=== PATIENT | female | born 1965 | race Caucasian/White ===

== ENCOUNTER 2020-09-07 14:21 | Outpatient (REF) | payer BC, SELFPAY | END 2020-09-07 14:22 | disposition home or self-care (01) | LOC: HO.LAB 14:21 | PROVIDERS: Visit Provider Internal Medicine | DX: Z20.828 Contact with and (suspected) exposure to other viral communicable diseases (principal) | CPT/HCPCS: C9803; U0003 ==

== ENCOUNTER 2020-09-30 06:20 | Outpatient (REF) | payer BC, SELFPAY ==
--- NOTE | 2020-09-30 08:28 | XR_ITS ---
EXAMINATION: XR HIP, RIGHT CLINICAL INFORMATION: Pain right hip. COMPARISON: None TECHNIQUE: Two views of the right hip. FINDINGS: There is maintained right hip joint space without bony erosive changes. No loose bodies seen. No acute fracture or dislocation. The soft tissues are normal. XR/XR hip RT min 2V IMPRESSION: Normal right hip.
[2020-09-30 11:19] LABS: MANUAL DIFF FLAG NO
[2020-09-30 11:24] LABS: Basophils Absolute Auto 0.1 X10*3/uL (0.0-0.2); Basophils Percent Auto 0.7 % (0-2); Eosinophils Absolute Auto 0.3 X10*3/uL (0.0-0.4); Eosinophils Percent Auto 3.9 % (0-4); Hematocrit 41.9 % (37-47); Hemoglobin 13.7 g/dl (12.0-16.0); Imm Gran Abs Auto 0.01 X10*3/uL (0.00-0.03); Imm Gran Pct Auto 0.1 % (0.0-0.4); Lymphocytes Absolute Auto 2.6 X10*3/uL (1.2-4.9); Lymphocytes Percent Auto 37.1 % (20-40); Mean Corpuscular HGB Conc 32.7 g/dl (31.0-35.0); Mean Corpuscular Hemoglobin 31.6 pg (27.0-33.0); Mean Corpuscular Volume 96.8 fL (80-98); Mean Platelet Volume 11.2 fL (9.4-12.3); Monocytes Absolute Auto 0.8 X10*3/uL (0.1-1.2); Monocytes Percent Auto 11.1 % (2-11); Neutrophils Absolute Auto 3.3 X10*3/uL (2.0-8.3); Neutrophils Percent Auto 47.1 % (45-73); Platelet Count 315 X10*3/uL (160-400); Red Blood Count 4.33 X10*6/uL (4.20-5.50); Red Cell Distribution Width 12.9 % (11.0-16.0); White Blood Count 6.9 X10*3/uL (4.8-10.8)
[2020-09-30 11:52] LABS: Alanine Aminotransferase 19 U/L (0-31); Albumin Level 3.9 g/dL (3.5-5.0); Alkaline Phosphatase 78 U/L (39-117); Anion Gap 15 (12-20); Aspartate Amino Transferase 18 U/L (5-31); Bilirubin Total 0.4 mg/dL (0.0-1.0); Blood Urea Nitrogen 25 mg/dL (9-16); Calcium 8.8 mg/dL (8.4-10.2); Carbon Dioxide 24 mmol/L (22-29); Chloride 106 mmol/L (96-108); Cholesterol 277 mg/dL; Estimated Glomerular Filt Rate > 60; Glucose Fasting 94 mg/dL (60-99); HDL Cholesterol 63 mg/dL; LDL Cholesterol Calculated 190 mg/dl; Potassium 4.6 mmol/l (3.3-5.1); Sodium 140 mmol/L (135-145); Total Protein 7.1 g/dL (6.5-8.0); Triglycerides 122 mg/dL
[2020-09-30 12:01] LABS: TSH reflex Free T4 2.71 mIU/mL (0.32-4.0); Vitamin D 25-OH Total 22.2 ng/mL (>30)
[2020-09-30 12:05] LABS: Vitamin B12 322 pg/mL (200-900)
== END 2020-09-30 06:21 | disposition home or self-care (01) ==
LOC: HO.HMGCLDS 06:20
PROVIDERS: PCP Nurse Practitioner Family; Visit Provider Nurse Practitioner Family
DX: E03.9 Hypothyroidism, unspecified (principal); E78.5 Hyperlipidemia, unspecified; D51.0 Vitamin B12 deficiency anemia due to intrinsic factor deficiency; E55.9 Vitamin D deficiency, unspecified; M25.551 Pain in right hip
CPT/HCPCS: 36415; 73502; 80053; 80061; 82306; 82607; 84443; 85025

== ENCOUNTER 2020-11-23 14:28 | Day surgery (SDC) | payer BC, SELFPAY ==
--- NOTE | 2020-11-22 08:36 | P.CONAN_ITS ---
Documented by User: Vika Ramos 11/22/20 08:38 HPI - Anesthesia Eval Consult details Narrative: 55yo F for Colonoscopy PMFSH Past Medical History Medical History Arthritis Dyslipidemia GERD (gastroesophageal reflux disease) Hemorrhoids Hiatal hernia HTN (hypertension) Hypothyroid Migraine with aura On beta edgar at home Pernicious anemia Renal calculi Right hip pain Xanthelasma Family History Family History Father Pancreatic cancer Mother Alzheimer's disease Stroke Brother No problems noted. Sister No problems noted. Son No problems noted. Daughter No problems noted. Surgical History Surgical History History of lithotripsy Hx of colonoscopy Hx of esophagogastroduodenoscopy Social History Social History Smoking Status: Never smoker Use of substances other than those prescribed or required for medical reasons: No Advance Directives: No Advance Directives Information Provided: No Advance Directives on File: No Meds Allergies Allergy/AdvReac Type Severity Reaction Status Date / Time pravastatin Allergy Unknown liver Verified 11/17/20 09:12 Home Medications Medication Instructions Recorded Confirmed Type coenzyme Q10 10 mg capsule 10 mg PO BID cap 09/21/20 11/17/20 History levothyroxine 88 mcg tablet 88 mcg PO DAILY 09/21/20 11/17/20 History Exam Exam Date and Time: November 22, 2020 0836 Height,Weight and Vital Signs: Height 5 ft 1 in Weight 72.121 kg Pertinent Lab Results Pertinent Lab Results: Laboratory Tests 09/30/20 09/30/20 06:57 06:57 WBC 6.9 Hgb 13.7 Hct 41.9 Plt Count 315 Sodium 140 Potassium 4.6 Chloride 106 Carbon Dioxide 24 BUN 25 H Creatinine 0.95 Assessment and Plan Assessment Anesthesia Assessment: Chart Reviewed Documented by User: Martha Laboy 11/23/20 09:57 [facility] Past Medical History Medical History Arthritis Dyslipidemia GERD (gastroesophageal reflux disease) Hemorrhoids Hiatal hernia HTN (hypertension) Hypothyroid Migraine with aura On beta edgar at home Pernicious anemia Renal calculi Right hip pain Xanthelasma Family History Family History Father Pancreatic cancer Mother Alzheimer's disease Stroke Brother No problems noted. Sister No problems noted. Son No problems noted. Daughter No problems noted. Surgical History Surgical History History of lithotripsy Hx of colonoscopy Hx of esophagogastroduodenoscopy Social History Social History Smoking Status: Never smoker Use of substances other than those prescribed or required for medical reasons: No Advance Directives: No Advance Directives Information Provided: No Advance Directives on File: No Meds Allergies Allergy/AdvReac Type Severity Reaction Status Date / Time pravastatin Allergy Unknown liver Verified 11/17/20 09:12 Home Medications Medication Instructions Recorded Confirmed Type coenzyme Q10 10 mg capsule 10 mg PO BID cap 09/21/20 11/17/20 History levothyroxine 88 mcg tablet 88 mcg PO DAILY 09/21/20 11/17/20 History Exam Airway Mallampati Class: II TM Dist: >3cm Neck ROM: Full Denture: Upper Heart: RRR Lungs: CTAcBL Assessment and Plan Assessment Anesthesia Assessment: Anesthesia Plan Discussed and Chart Reviewed Final Anesthetic Review NPO: Yes ASA Class: II Final Preanesthetic Review: Meds/Allgs Chart Reviewed and Consent Obtained/Reviewed Patient Risk: Intermediate Procedure Risk: Intermediate Anesthetic Plan Anesthetic Plan: MAC: Disposition: Standard PACU
[2020-11-23 09:36] VITALS: BP 119/84; PULSE 102; RESP 16; TEMP 36.9; O2SAT 98
[2020-11-23] MEDS: Lactated Ringers 1,000 ML 100 ML IVCONT (09:39)
[2020-11-23 10:38] VITALS: BP 121/81; PULSE 94; RESP 16; TEMP 36.4; O2SAT 99
--- NOTE | 2020-11-23 10:42 | PM.OP ---
Brief Operative Note Date of Service: 11/23/20 Pre-op diagnosis: Screening, Hx of colon adenomas Post-op diagnosis: other (Colon polyps) Procedure: Colonoscopy to cecum and TI with biopsy and removal of polyps Surgeon: Fawad Reyna Anesthesia: MAC Estimated blood loss (mL): 4.0 Pathology: other (A. Cecal polyps) Condition: stable Disposition: PACU
[2020-11-23 10:53] VITALS: BP 132/86; PULSE 85; RESP 16; TEMP 36.4; O2SAT 98
--- NOTE | 2020-11-23 11:02 | HO.POSTANES ---
Post Anesthesia Evaluation Post Anesthesia Evaluation Vital Signs: Vital Signs Temp Pulse Resp BP Pulse Ox 11/23/20 10:53 97.6 F 85 16 132/86 98 11/23/20 10:38 97.6 F 94 16 121/81 99 11/23/20 09:36 98.4 F 102 H 16 119/84 98 Anesthesia: Monitored Mental Status: Awake Pain Control: Satisfactory Nausea/Vomiting: None Hydration: Adequate Anesthesia-Related Issues: No Anes. Related Issues
--- NOTE | 2020-11-23 11:10 | OP_ITS ---
SURGEON: Fawad Reyna MD INDICATIONS: The patient presents for evaluation of colorectal cancer screening and personal history of tubular adenoma of the colon. Full consent has been obtained from her for this, including risks of bleeding and perforation. PREOPERATIVE DIAGNOSIS: POSTOPERATIVE DIAGNOSIS: PROCEDURE PERFORMED: Colonoscopy to cecum and terminal ileum with biopsy and removal of polyps. ESTIMATED BLOOD LOSS: COMPLICATIONS: ANESTHESIA: Monitored anesthesia care. ASSISTANTS: SPECIMENS: PREOPERATIVE DIAGNOSES: Colorectal cancer screening and personal history of tubular adenoma of the colon. POSTOPERATIVE DIAGNOSES: Colorectal cancer screening and personal history of tubular adenoma of the colon, small colon polyps, diverticulosis, and internal hemorrhoids. DESCRIPTION OF PROCEDURE: The patient was placed in the left lateral decubitus position. The digital rectal exam revealed no abnormalities. The Olympus video pediatric colonoscope was entered into the rectum and advanced easily to the cecum. Once in the cecum, I did identify cecal pouch with appendiceal orifice and a normal-appearing ileocecal valve. The terminal ileum was cannulated and appeared normal. The scope was withdrawn back in the colon. The entire cecum was well visualized. In the cecum, were 2 flat less than 5 mm polyps, which were each biopsied and completely removed with cold biopsy forceps. The scope was slowly withdrawn assessing all mucosal surfaces carefully. Preparation was excellent. I did not visualize any sign of polyps otherwise, angiodysplasias, nor colitis. There was a mild amount of sigmoid diverticulosis. In the rectum, scope was retroflexed visualizing small internal hemorrhoids, but no other pathology. The rectal mucosa appeared normal. The scope was straightened and withdrawn from the patient. She tolerated the procedure well and was returned to the recovery area in stable condition. IMPRESSION: 1. Colon polyps, status post biopsy and removal. 2. Diverticulosis. 3. Internal hemorrhoids. PLAN: The results of the biopsy will be checked. I would recommend a repeat colonoscopy in 5 years for further surveillance. She will otherwise see me on a p.r.n. basis. This has been discussed with her daughter. MD SOLANGE Lopez/GHISLAINE / [id number]
== END 2020-11-23 14:30 | disposition home or self-care (01) ==
LOC: HO.SSS 14:28
PROVIDERS: PCP Nurse Practitioner Family; Visit Provider Internal Medicine
PROC: 0DJD8ZZ Inspection of Lower Intestinal Tract, Via Natural or Artificial Opening Endoscopic (ICD-10-PCS; CPT 45378; principal; 2020-11-23 10:00)
DX: Z12.11 Encounter for screening for malignant neoplasm of colon (principal); Z86.010 Personal history of colon polyps; D12.0 Benign neoplasm of cecum; K57.30 Diverticulosis of large intestine without perforation or abscess without bleeding; K64.8 Other hemorrhoids; K21.9 Gastro-esophageal reflux disease without esophagitis; I10 Essential (primary) hypertension; Z79.899 Other long term (current) drug therapy
CPT/HCPCS: 45380; 88305

== ENCOUNTER 2021-07-05 06:09 | Outpatient (REF) | payer BC, SELFPAY ==
[2021-07-05 11:09] LABS: MANUAL DIFF FLAG NO
[2021-07-05 11:16] LABS: Basophils Absolute Auto 0.1 X10*3/uL (0.0-0.2); Basophils Percent Auto 0.9 % (0-2); Eosinophils Absolute Auto 0.3 X10*3/uL (0.0-0.4); Eosinophils Percent Auto 5.4 % (0-4); Hematocrit 39.1 % (37-47); Hemoglobin 13.1 g/dl (12.0-16.0); Imm Gran Abs Auto 0.01 X10*3/uL (0.00-0.03); Imm Gran Pct Auto 0.2 % (0.0-0.4); Lymphocytes Absolute Auto 2.3 X10*3/uL (1.2-4.9); Lymphocytes Percent Auto 39.4 % (20-40); Mean Corpuscular HGB Conc 33.5 g/dl (31.0-35.0); Mean Corpuscular Hemoglobin 31.5 pg (27.0-33.0); Mean Platelet Volume 11.5 fL (9.4-12.3); Monocytes Absolute Auto 0.7 X10*3/uL (0.1-1.2); Monocytes Percent Auto 12.8 % (2-11); Neutrophils Absolute Auto 2.4 X10*3/uL (2.0-8.3); Neutrophils Percent Auto 41.3 % (45-73); Platelet Count 312 X10*3/uL (160-400); Red Blood Count 4.16 X10*6/uL (4.20-5.50); Red Cell Distribution Width 13.4 % (11.0-16.0); White Blood Count 5.8 X10*3/uL (4.8-10.8)
[2021-07-05 11:47] LABS: Alanine Aminotransferase 16 U/L (0-31); Albumin Level 4.1 g/dL (3.5-5.0); Alkaline Phosphatase 105 U/L (39-117); Anion Gap 12 (12-20); Aspartate Amino Transferase 18 U/L (5-31); Bilirubin Total 0.5 mg/dL (0.0-1.0); Blood Urea Nitrogen 16 mg/dL (9-16); Calcium 9.4 mg/dL (8.4-10.2); Carbon Dioxide 24 mmol/L (22-29); Chloride 108 mmol/L (96-108); Cholesterol 258 mg/dL; Estimated Glomerular Filt Rate > 60; Glucose Fasting 95 mg/dL (60-99); HDL Cholesterol 54 mg/dL; LDL Cholesterol Calculated 180 mg/dl; Potassium 4.2 mmol/L (3.3-5.1); Sodium 140 mmol/L (135-145); Total Protein 7.1 g/dL (6.5-8.0); Triglycerides 124 mg/dL
[2021-07-05 12:10] LABS: TSH reflex Free T4 2.81 uIU/mL (0.32-4.0)
[2021-07-05 12:13] LABS: Folate 12.6 ng/mL (> or = 4.0); Vitamin B12 249 pg/mL (200-900)
== END 2021-07-05 06:10 | disposition home or self-care (01) ==
LOC: HO.HMGCLDS 06:09
PROVIDERS: PCP Nurse Practitioner Family; Visit Provider Nurse Practitioner Family
DX: E78.5 Hyperlipidemia, unspecified (principal); I10 Essential (primary) hypertension; D51.0 Vitamin B12 deficiency anemia due to intrinsic factor deficiency
CPT/HCPCS: 36415; 80053; 80061; 82607; 82746; 84443; 85025

== ENCOUNTER 2021-08-16 18:43 | Emergency (ER) | payer BC, SELFPAY ==
--- NOTE | 2021-08-16 | ECG_ITS ---
Test Reason : CHEST PAIN Blood Pressure : / mmHG Vent. Rate : 083 BPM Atrial Rate : 083 BPM P-R Int : 180 ms QRS Dur : 086 ms QT Int : 360 ms P-R-T Axes : 055 066 050 degrees QTc Int : 423 ms Normal sinus rhythm Normal ECG When compared with ECG of 12-JAN-2020 20:49, No significant change was found Referred By: Generic ED Physician Electronically Signed By:JENNIFER BOUDREAUX MD
--- NOTE | ~2021-08-16 | XR_ITS ---
EXAMINATION: XR CHEST CLINICAL INFORMATION: Chest pain COMPARISON: Previous chest x-ray most recent December 2019 TECHNIQUE: 2 views of the chest were obtained. FINDINGS: No significant abnormality is noted involving the heart, lungs, mediastinum, bony thorax or soft tissues. XR/XR chest 2V IMPRESSION: Unremarkable examination.
[2021-08-16 19:21] VITALS: BP 141/85; PULSE 83; RESP 16; TEMP 36.2; O2SAT 98; BMI 30.2
[2021-08-16 19:36] LABS: MANUAL DIFF FLAG NO
[2021-08-16 19:38] LABS: Basophils Absolute Auto 0.1 X10*3/uL (0.0-0.2); Basophils Percent Auto 0.5 % (0-2); Eosinophils Absolute Auto 0.1 X10*3/uL (0.0-0.4); Hematocrit 37.7 % (37-47); Hemoglobin 12.8 g/dl (12.0-16.0); Imm Gran Abs Auto 0.03 X10*3/uL (0.00-0.03); Imm Gran Pct Auto 0.3 % (0.0-0.4); Lymphocytes Absolute Auto 2.3 X10*3/uL (1.2-4.9); Lymphocytes Percent Auto 21.5 % (20-40); Mean Corpuscular Hemoglobin 31.3 pg (27.0-33.0); Mean Corpuscular Volume 92.2 fL (80-98); Mean Platelet Volume 10.6 fL (9.4-12.3); Monocytes Absolute Auto 0.9 X10*3/uL (0.1-1.2); Monocytes Percent Auto 8.6 % (2-11); Neutrophils Absolute Auto 7.4 X10*3/uL (2.0-8.3); Neutrophils Percent Auto 68.1 % (45-73); Platelet Count 280 X10*3/uL (160-400); Red Blood Count 4.09 X10*6/uL (4.20-5.50); Red Cell Distribution Width 12.8 % (11.0-16.0); White Blood Count 10.8 X10*3/uL (4.8-10.8)
[2021-08-16 19:49] LABS: Anion Gap 13 (12-20); Blood Urea Nitrogen 16 mg/dL (9-16); Calcium 9.2 mg/dL (8.4-10.2); Carbon Dioxide 23 mmol/L (22-29); Chloride 107 mmol/L (96-108); Creatinine Clr Calc Pharmacy 73.4; Estimated Glomerular Filt Rate > 60; Glucose Random 97 mg/dL (60-115); Potassium 3.8 mmol/L (3.3-5.1); Sodium 139 mmol/L (135-145)
[2021-08-16 19:56] LABS: Troponin-I High Sensitivity < 3.5 ng/L (<3.5-17.0)
--- NOTE | 2021-08-16 20:23 | ED_ITS ---
HPI - Chest Pain General Chief Complaint: Chest Pain Stated Complaint: chest pain Time Seen by Provider: 08/16/21 20:22 Related Data Home Medications Medication Instructions Recorded Confirmed coenzyme Q10 10 mg capsule 10 mg PO BID cap 09/21/20 11/17/20 Previous Rx's Medication Instructions Recorded sumatriptan succinate 50 mg tablet 50 mg PO BID PRN 30 Days #60 tab 12/26/20 metoprolol succinate 50 mg 50 mg PO DAILY 90 Days #90 tab 12/27/20 tablet,extended release 24 hr (Toprol XL) atorvastatin 80 mg tablet 80 mg PO QPM #90 tab 03/23/21 levothyroxine 88 mcg tablet 88 mcg PO DAILY #90 tab 05/21/21 Allergies Allergy/AdvReac Type Severity Reaction Status Date / Time pravastatin Allergy Unknown liver Verified 08/16/21 19:24 [facility] Past Medical History Medical History (Updated 08/16/21 @ 23:18 by Mary Vergara MD) Arthritis Dyslipidemia GERD (gastroesophageal reflux disease) Hemorrhoids Hiatal hernia HTN (hypertension) Hypothyroid Migraine with aura On beta edgar at home Pernicious anemia Renal calculi Right hip pain Xanthelasma Surgical History History of lithotripsy Hx of colonoscopy Hx of esophagogastroduodenoscopy Family History Family History Father Pancreatic cancer Mother Alzheimer's disease Stroke Brother No problems noted. Sister No problems noted. Son No problems noted. Daughter No problems noted. Social History Social History Advance Directives: No Advance Directives Information Provided: Yes Patient : No Physical Exam Vital Signs: Vital Signs: Last Vital Signs Temp 97.1 F 08/16/21 19:21 Pulse 83 08/16/21 19:21 Resp 16 08/16/21 19:21 BP 141/85 H 08/16/21 19:21 Pulse Ox 98 08/16/21 19:21 Body Mass Index 30.2 MDM - Chest Pain MDM Narrative Medical decision making narrative: Two sets of heart enzymes are negative. Idris cordoba has chest pain that is mid chest not associated with shortness of breath no diaphoresis. Positive history of high cholesterol no history diabetes, hypertension, mi, family history of ID. Never was a smoker. Patient is is well-appearing. EKG is normal. It showed a sinus pattern heart rate was 80 NE QRS QT within normal limits is no acute ST segment elevation. In the setting of atypical history in the setting of negative troponin 1 risk factor and age of 55. Patient heart score is less than 3. Will discharge patient home. Chest x- ray showed no pneumonia no pneumothorax. Patient has no significant risk for pulmonary emboli. Will discharge patient home. Medical Records Data Attestation: I reviewed the patient's medical records. Lab Data Attestation: I reviewed the patient's lab results. Result diagrams: 08/16/21 19:30 08/16/21 19:30 Labs: Lab Results 08/16/21 08/16/21 08/16/21 Range/Units 19:30 19:30 19:30 WBC 10.8 (4.8-10.8) X10*3/uL RBC 4.09 L (4.20-5.50) X10*6/uL Hgb 12.8 (12.0-16.0) g/dl Hct 37.7 (37-47) % MCV 92.2 (80-98) fL MCH 31.3 (27.0-33.0) pg MCHC 34.0 (31.0-35.0) g/dl RDW 12.8 (11.0-16.0) % Plt Count 280 (160-400) X10*3/uL MPV 10.6 (9.4-12.3) fL Immature Gran % (Auto) 0.3 (0.0-0.4) % Neut % (Auto) 68.1 (45-73) % Lymph % (Auto) 21.5 (20-40) % Hernando % (Auto) 8.6 (2-11) % Eos % (Auto) 1.0 (0-4) % Baso % (Auto) 0.5 (0-2) % Lymph # (Auto) 2.3 (1.2-4.9) X10*3/uL Hernando # (Auto) 0.9 (0.1-1.2) X10*3/uL Eos # (Auto) 0.1 (0.0-0.4) X10*3/uL Baso # (Auto) 0.1 (0.0-0.2) X10*3/uL Abs Immat Gran (auto) 0.03 (0.00-0.03) X10*3/uL Absolute Neuts (auto) 7.4 (2.0-8.3) X10*3/uL Absolute Nucleated RBC 0.000 (0.0-0.012) X10*3/uL Nucleated RBC % (auto) 0.0 (0.0-0.2) /100WBC Sodium 139 (135-145) mmol/L Potassium 3.8 (3.3-5.1) mmol/L Chloride 107 (96-108) mmol/L Carbon Dioxide 23 (22-29) mmol/L Anion Gap 13 (12-20) BUN 16 (9-16) mg/dL Creatinine 0.81 (0.5-1.4) mg/dL Estim Creat Clear Calc 73.4 Estimated GFR > 60 Random Glucose 97 (60-115) mg/dL Calcium 9.2 (8.4-10.2) mg/dL Troponin I High Sens < 3.5 (<3.5-17.0) ng/L 08/16/21 Range/Units 22:50 WBC (4.8-10.8) X10*3/uL RBC (4.20-5.50) X10*6/uL Hgb (12.0-16.0) g/dl Hct (37-47) % MCV (80-98) fL MCH (27.0-33.0) pg MCHC (31.0-35.0) g/dl RDW (11.0-16.0) % Plt Count (160-400) X10*3/uL MPV (9.4-12.3) fL Immature Gran % (Auto) (0.0-0.4) % Neut % (Auto) (45-73) % Lymph % (Auto) (20-40) % Hernando % (Auto) (2-11) % Eos % (Auto) (0-4) % Baso % (Auto) (0-2) % Lymph # (Auto) (1.2-4.9) X10*3/uL Hernando # (Auto) (0.1-1.2) X10*3/uL Eos # (Auto) (0.0-0.4) X10*3/uL Baso # (Auto) (0.0-0.2) X10*3/uL Abs Immat Gran (auto) (0.00-0.03) X10*3/uL Absolute Neuts (auto) (2.0-8.3) X10*3/uL Absolute Nucleated RBC (0.0-0.012) X10*3/uL Nucleated RBC % (auto) (0.0-0.2) /100WBC Sodium (135-145) mmol/L Potassium (3.3-5.1) mmol/L Chloride (96-108) mmol/L Carbon Dioxide (22-29) mmol/L Anion Gap (12-20) BUN (9-16) mg/dL Creatinine (0.5-1.4) mg/dL Estim Creat Clear Calc Estimated GFR Random Glucose (60-115) mg/dL Calcium (8.4-10.2) mg/dL Troponin I High Sens < 3.5 (<3.5-17.0) ng/L Discharge Plan Discharge Clinical Impression: Chest pain Patient Disposition: Home, Self-Care Instructions: Chest Pain (ED) Prescriptions: No Action sumatriptan succinate 50 mg tablet 50 mg PO BID PRN (Reason: migraine headache) 30 Days Qty: 60 RF: 4 metoprolol succinate [Toprol XL] 50 mg tablet extended release 24 hr 50 mg PO DAILY 90 Days Qty: 90 RF: 2 atorvastatin 80 mg tablet 80 mg PO QPM Qty: 90 RF: 0 levothyroxine 88 mcg tablet 88 mcg PO DAILY Qty: 90 RF: 0 coenzyme Q10 10 mg capsule 10 mg PO BID RF: 0 Referrals: Dave Iyer, PATROL INSPECTOR-BC [Primary Care Provider] - 2 days (Small risk of cardiac event still exists. Please closely follow-up with your doctor and with cardiology.) Bentley Aguila MD [Physician] - 2 days
[2021-08-16 23:13] LABS: Troponin-I High Sensitivity < 3.5 ng/L (<3.5-17.0)
== END 2021-08-16 23:28 | disposition home or self-care (01) ==
PROVIDERS: Emergency Provider Emergency Medicine Emergency Medical Services; PCP Nurse Practitioner Family
DX: R07.9 Chest pain, unspecified (principal); I10 Essential (primary) hypertension; Z79.899 Other long term (current) drug therapy
CPT/HCPCS: 36415; 71046; 80048; 84484; 85025; 93005; 99283

== ENCOUNTER 2021-10-27 09:15 | Outpatient (REF) | payer BC, SELFPAY ==
[2021-10-27 12:48] LABS: Cholesterol 233 mg/dL; HDL Cholesterol 56 mg/dL; LDL Cholesterol Calculated 147 mg/dl; Triglycerides 151 mg/dL
== END 2021-10-27 09:16 | disposition home or self-care (01) ==
LOC: HO.HMGCLDS 09:15
PROVIDERS: PCP Nurse Practitioner Family; Visit Provider Nurse Practitioner Family
DX: E78.5 Hyperlipidemia, unspecified (principal); I10 Essential (primary) hypertension
CPT/HCPCS: 36415; 80061

== ENCOUNTER 2022-01-22 06:00 | Outpatient (REF) | payer BC, SELFPAY ==
[2022-01-22 11:32] LABS: Appearance Urine CLOUDY; Color Urine STRAW; Glucose Urine UA NEG (NEG); Leukocyte Esterase Urine NEG (NEG); Nitrite Urine NEG (NEG); PH 5.5 (5.0-8.0); Specific Gravity - Urine 1.025 (1.005-1.025); Urine Blood NEG (NEG); Urine Ketones NEG (NEG); Urine Protein NEG (NEG-TRACE)
[2022-01-22 12:20] LABS: Alanine Aminotransferase 15 U/L (0-31); Alkaline Phosphatase 94 U/L (39-117); Anion Gap 10 (12-20); Aspartate Amino Transferase 15 U/L (5-31); Bilirubin Total 0.4 mg/dL (0.0-1.0); Blood Urea Nitrogen 19 mg/dL (9-16); Calcium 8.9 mg/dL (8.4-10.2); Carbon Dioxide 23 mmol/L (22-29); Chloride 109 mmol/L (96-108); Cholesterol 182 mg/dL; Estimated Glomerular Filt Rate > 60; Glucose Fasting 103 mg/dL (60-99); HDL Cholesterol 50 mg/dL; LDL Cholesterol Calculated 105 mg/dl; Potassium 4.1 mmol/L (3.3-5.1); Sodium 138 mmol/L (135-145); TSH reflex Free T4 5.18 uIU/mL (0.32-4.0); Total Protein 6.9 g/dL (6.5-8.0); Triglycerides 139 mg/dL
[2022-01-22 13:00] LABS: Free T4 (Free Thyroxine) 0.79 ng/dL (0.71-1.85)
== END 2022-01-22 06:01 | disposition home or self-care (01) ==
LOC: HO.HMGCLDS 06:00
PROVIDERS: Visit Provider Nurse Practitioner Family
DX: I10 Essential (primary) hypertension (principal); E03.9 Hypothyroidism, unspecified; E78.5 Hyperlipidemia, unspecified
CPT/HCPCS: 36415; 80053; 80061; 81003; 84439; 84443

== ENCOUNTER 2022-03-12 06:00 | Outpatient (REF) | payer BC, SELFPAY ==
[2022-03-12 12:10] LABS: TSH reflex Free T4 13.83 uIU/mL (0.32-4.0)
== END 2022-03-12 06:01 | disposition home or self-care (01) ==
LOC: HO.HMGCLDS 06:00
PROVIDERS: Visit Provider Nurse Practitioner Family
DX: E03.9 Hypothyroidism, unspecified (principal)
CPT/HCPCS: 36415; 84439; 84443

== ENCOUNTER 2022-05-14 16:02 | Outpatient (REF) | payer BC, SELFPAY ==
[2022-05-15 09:13] LABS: CT PCR NOT DETECTED (Not Detect.); NG PCR NOT DETECTED (Not Detect.)
[2022-05-15 09:44] LABS: BV Int Neg Control Negative (Negative); BV Int Pos Control Positive (Positive)
[2022-05-17 12:26] LABS: HPV mRNA E6/E7 rflx Not Detected (Not Detected)
== END 2022-05-14 16:03 | disposition home or self-care (01) ==
LOC: HO.LAB 16:02
PROVIDERS: Visit Provider Advanced Practice Midwife
DX: Z01.419 Encounter for gynecological examination (general) (routine) without abnormal findings (principal); Z11.51 Encounter for screening for human papillomavirus (HPV); Z20.2 Contact with and (suspected) exposure to infections with a predominantly sexual mode of transmission; N89.8 Other specified noninflammatory disorders of vagina
CPT/HCPCS: 87480; 87491; 87510; 87591; 87624; 87660; 88142

== ENCOUNTER 2022-07-13 16:16 | Outpatient (REF) | payer BC, SELFPAY ==
--- NOTE | ~2022-07-13 | MM_ITS ---
EXAMINATION: MM SCREENING DIGITAL BREAST TOMOSYNTHESIS, BILATERAL CLINICAL INFORMATION: Screening. Asymptomatic. The lifetime risk of breast cancer based on the Tyrer-Cuzick Model is 9%. COMPARISON: Outside mammography: 06/17/2018, 06/12/2017, 06/06/2016 ([place]). TECHNIQUE: Digital breast tomosynthesis is performed in both the craniocaudal and mediolateral oblique views along with computer-aided detection (CAD). Synthesized 2D images are generated from the tomosynthesis. FINDINGS: There are scattered areas of fibroglandular density (ACR BI-RADS breast composition Category b). There are no significant masses, abnormal calcifications, or other abnormalities. Parenchymal pattern is similar to prior outside studies. There is no developing density or architectural abnormality. The axilla and skin contours are unremarkable. No significant changes. MM/MM tomosynthesis screening BI IMPRESSION: No mammographic evidence of malignancy. ASSESSMENT: BI-RADS 1: Negative RECOMMENDATION: Routine annual mammography screening. This patient's information was entered into a reminder system with a target due date for their next mammogram.
== END 2022-07-13 16:17 | disposition home or self-care (01) ==
LOC: HO.MAMMO 16:16
PROVIDERS: Visit Provider Advanced Practice Midwife
DX: Z12.31 Encounter for screening mammogram for malignant neoplasm of breast (principal)
CPT/HCPCS: 77063; 77067

== ENCOUNTER 2023-05-13 15:37 | Outpatient (REF) | payer BC, SELFPAY | END 2023-05-13 15:38 | disposition home or self-care (01) | LOC: HO.XRAY 15:37 | PROVIDERS: Visit Provider Neuromusculoskeletal Medicine, Sports Medicine | DX: Z13.89 Encounter for screening for other disorder (principal) ==

== ENCOUNTER 2023-05-14 15:54 | Outpatient (REF) | payer BC, SELFPAY ==
--- NOTE | ~2023-05-14 | XR_ITS ---
EXAMINATION: XR CERVICAL SPINE CLINICAL INFORMATION: Sprain COMPARISON: None available. TECHNIQUE: 5 views of the cervical spine, 7 images total. FINDINGS: There is no fracture or subluxation. Prevertebral soft tissues are within normal limits. There is marked disc space narrowing at C3-C4, C4-C5, C5-C6, C6/C7 and C7-T1 with marginal osteophyte formation. There is multilevel mild narrowing of the neural foramina. The lung apices are clear. XR/XR cervical spine 5V IMPRESSION: Marked multilevel degenerative disc disease.
--- NOTE | ~2023-05-14 | XR_ITS ---
EXAMINATION: XR LUMBOSACRAL SPINE CLINICAL INFORMATION: Sprain COMPARISON: 12/01/2016 TECHNIQUE: Three views of the lumbosacral spine. FINDINGS: Mild dextroscoliosis of the lumbar spine. Small pelvic calcifications are likely vascular. Atherosclerotic aortoiliac calcifications Facet arthritis in the lower lumbar spine. Moderate multilevel lumbar spondylosis with loss of disc space height at L3-L4. XR/XR lumbar spine 2-3V IMPRESSION: Progression of moderate multilevel lumbar spondylosis with loss of disc space height at L3-L4. Additional imaging with CT scan or MRI should be considered for better visualization as these modalities are much more sensitive for detection of fracture or other underlying pathology.
== END 2023-05-14 15:55 | disposition home or self-care (01) ==
LOC: HO.XRAY 15:54
PROVIDERS: Visit Provider Neuromusculoskeletal Medicine, Sports Medicine
DX: S16.1XXD Strain of muscle, fascia and tendon at neck level, subsequent encounter (principal); S39.012D Strain of muscle, fascia and tendon of lower back, subsequent encounter
CPT/HCPCS: 72050; 72100

== ENCOUNTER 2023-06-18 06:02 | Outpatient (REF) | payer BC, SELFPAY ==
[2023-06-18 11:20] LABS: MANUAL DIFF FLAG NO
[2023-06-18 11:27] LABS: Basophils Absolute Auto 0.1 X10*3/uL (0.0-0.2); Basophils Percent Auto 0.7 % (0-2); Eosinophils Absolute Auto 0.2 X10*3/uL (0.0-0.4); Eosinophils Percent Auto 1.9 % (0-4); Hemoglobin 13.6 g/dl (12.0-16.0); Imm Gran Abs Auto 0.03 X10*3/uL (0.00-0.03); Imm Gran Pct Auto 0.3 % (0.0-0.4); Lymphocytes Absolute Auto 4.6 X10*3/uL (1.2-4.9); Mean Corpuscular HGB Conc 33.2 g/dl (31.0-35.0); Mean Corpuscular Hemoglobin 31.5 pg (27.0-33.0); Mean Corpuscular Volume 94.9 fL (80.0-98.0); Monocytes Absolute Auto 0.8 X10*3/uL (0.1-1.2); Neutrophils Absolute Auto 4.7 x10*3/uL (2.0-8.3); Neutrophils Percent Auto 45.1 % (45-73); Platelet Count 322 X10*3/uL (160-400); Red Blood Count 4.32 X10*6/uL (4.20-5.50); Red Cell Distribution Width 13.4 % (11.0-16.0); White Blood Count 10.4 X10*3/uL (4.8-10.8)
[2023-06-18 11:36] LABS: Appearance Urine Clear; Color Urine Yellow; Glucose Urine UA Negative (Negative); Leukocyte Esterase Urine Negative (Negative); Nitrite Urine Negative (Negative); Specific Gravity - Urine 1.025 (1.005-1.025); Urine Blood Negative (Negative); Urine Ketones Negative (Negative); Urine Protein Negative (Neg-Trace)
[2023-06-18 12:02] LABS: Alanine Aminotransferase 16 U/L (0-31); Albumin Level 4.1 g/dL (3.5-5.0); Alkaline Phosphatase 83 U/L (39-117); Anion Gap 13 (12-20); Aspartate Amino Transferase 19 U/L (5-31); Bilirubin Total 0.2 mg/dL (0.0-1.0); Blood Urea Nitrogen 18 mg/dL (9-16); Calcium 9.6 mg/dL (8.4-10.2); Carbon Dioxide 25 mmol/L (22-29); Chloride 107 mmol/L (96-108); Cholesterol 305 mg/dL (<200); Estimated Glomerular Filt Rate > 60; Glucose Fasting 91 mg/dL (60-99); HDL Cholesterol 67 mg/dL (>40); LDL Cholesterol Calculated 208 mg/dL (<100); Potassium 3.8 mmol/L (3.3-5.1); Sodium 141 mmol/L (135-145); Total Protein 7.4 g/dL (6.5-8.0); Triglycerides 154 mg/dL (<150)
[2023-06-18 12:05] LABS: TSH reflex Free T4 31.44 uIU/mL (0.32-4.0); Vitamin D 25-OH Total 67.6 ng/mL (>30)
[2023-06-18 12:49] LABS: Free T4 (Free Thyroxine) 0.63 ng/dL (0.71-1.85)
== END 2023-06-18 06:03 | disposition home or self-care (01) ==
LOC: HO.HMGCLDS 06:02
PROVIDERS: PCP Nurse Practitioner Family; Visit Provider Nurse Practitioner Family
DX: E03.9 Hypothyroidism, unspecified (principal); I10 Essential (primary) hypertension; E55.9 Vitamin D deficiency, unspecified; E78.5 Hyperlipidemia, unspecified
CPT/HCPCS: 36415; 80053; 80061; 81003; 82306; 84439; 84443; 85025

== ENCOUNTER 2023-07-19 15:39 | Outpatient (REF) | payer BC, SELFPAY ==
--- NOTE | ~2023-07-19 | MM_ITS ---
EXAMINATION: MM SCREENING DIGITAL BREAST TOMOSYNTHESIS, BILATERAL CLINICAL INFORMATION: Screening. Asymptomatic. COMPARISON: Mammography: This study is compared with prior exams dating back to 2016. TECHNIQUE: Digital breast tomosynthesis is performed in both the craniocaudal and mediolateral oblique views along with computer-aided detection (CAD). Synthesized 2D images are generated from the tomosynthesis. FINDINGS: There are scattered areas of fibroglandular density (ACR BI-RADS breast composition Category b). There are no significant masses, abnormal calcifications, or other abnormalities. MM/MM tomosynthesis screening BI IMPRESSION: No mammographic evidence of malignancy. ASSESSMENT: BI-RADS BI-RADS 1 - Negative RECOMMENDATION: Routine annual mammography screening. 1 year F/U This examination should not preclude the clinical evaluation of a suspicious palpable abnormality. This patient's information was entered into a reminder system with a target due date for their next mammogram.
== END 2023-07-19 15:40 | disposition home or self-care (01) ==
LOC: HO.MAMMO 15:39
PROVIDERS: PCP Nurse Practitioner Family; Visit Provider Nurse Practitioner Family
DX: Z12.31 Encounter for screening mammogram for malignant neoplasm of breast (principal)
CPT/HCPCS: 77063; 77067

== ENCOUNTER → 2023-07-19 16:00 | Outpatient (BNV) | payer BC, SELFPAY | PROVIDERS: PCP Nurse Practitioner Family; Visit Provider Radiology Diagnostic Radiology | DX: Z12.31 Encounter for screening mammogram for malignant neoplasm of breast (principal) | CPT/HCPCS: 77063; 77067 ==

== ENCOUNTER 2023-08-06 06:01 | Outpatient (REF) | payer BC, SELFPAY ==
[2023-08-06 13:02] LABS: Alanine Aminotransferase 25 U/L (0-31); Alkaline Phosphatase 68 U/L (39-117); Anion Gap 15 (12-20); Aspartate Amino Transferase 31 U/L (5-31); Bilirubin Total 0.2 mg/dL (0.0-1.0); Blood Urea Nitrogen 14 mg/dL (9-16); Calcium 9.6 mg/dL (8.4-10.2); Carbon Dioxide 22 mmol/L (22-29); Chloride 109 mmol/L (96-108); Cholesterol 225 mg/dL (<200); Estimated Glomerular Filt Rate > 60; Glucose Fasting 96 mg/dL (60-99); HDL Cholesterol 62 mg/dL (>40); LDL Cholesterol Calculated 140 mg/dL (<100); Potassium 3.9 mmol/L (3.3-5.1); Sodium 142 mmol/L (135-145); TSH reflex Free T4 12.43 uIU/mL (0.32-4.0); Triglycerides 117 mg/dL (<150)
[2023-08-06 13:50] LABS: Free T4 (Free Thyroxine) 0.87 ng/dL (0.71-1.85)
== END 2023-08-06 06:02 | disposition home or self-care (01) ==
LOC: HO.HMGCLDS 06:01
PROVIDERS: PCP Nurse Practitioner Family; Visit Provider Nurse Practitioner Family
DX: I10 Essential (primary) hypertension (principal); E78.5 Hyperlipidemia, unspecified; E03.9 Hypothyroidism, unspecified
CPT/HCPCS: 36415; 80053; 80061; 84439; 84443

== ENCOUNTER 2023-08-07 13:24 | Outpatient (AMB) | payer BC, SELFPAY ==
[2023-08-07 13:35] VITALS: BP 140/88; PULSE 81; O2SAT 97; BMI 28.6
--- NOTE | 2023-08-07 13:35 | A.OFFPC_ITS ---
Vital Signs 08/07/23 13:35 Height 5 ft 2 in Weight 156 lb 4 oz BMI 28.6 BP 140/88 H Blood Pressure Location Rt brachial Position Sitting Pulse 81 Pulse Source Pulse Oximeter Pulse Oximetry (%) 97 Oxygen Delivery Method Room Air Intake Visit Reasons: phy Allergies pravastatin Allergy (Unknown, Verified 08/07/23 15:53) liver Medication List - Last Reconciled 08/07/23 by TAVARES Watts levothyroxine 100 mcg PO DAILY 90 days metoprolol succinate ER (Toprol XL) 50 mg PO DAILY 90 days rosuvastatin 40 mg PO DAILY 90 days sumatriptan succinate 50 mg PO BID PRN 30 days Tobacco use date assessed: 08/07/23 Dental Screening Dental Screen Date: 08/07/23 Did you have a dental visit in the last 12 months?: Yes Did you have a dental problem in the last 6 months where you did not have access to dental care?: No Was dental information given to patient?: Patient has dentist HPI phy HPI Details Pt is here for a PE. Labs were already performed.Colon screen is up to date. 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 Mammo is up to date. Pt c/o cervical neck pain with radicular symptoms down her BUE. She reports that the pain is worse with movement. Pt had an XR which showed marked disc space narrowing at C3-C4, C4-C5, C5-C6, C6/C7 and C7-T1 with marginal osteophyte formation, multilevel mild narrowing of the neural foramina, marked multilevel DDD. She has done PT in the past. She has had injections as well. Pt's last MRI was over 8 years ago. Will order MRI. Pt's TSH was elevated. She is taking levothyroxine 88mcg regularly. Will increase this to 100mcg. dyslipidemia: choles/LDL is tredning down. [facility] Medical History On beta edgar at home Right hip pain GERD (gastroesophageal reflux disease) Pernicious anemia HTN (hypertension) Migraine with aura Dyslipidemia Hypothyroid Arthritis Xanthelasma Hemorrhoids Hiatal hernia Renal calculi Surgical History Hx of colonoscopy Hx of esophagogastroduodenoscopy History of lithotripsy Family History Father Pancreatic cancer Mother Alzheimer's disease Stroke Brother No problems noted. Sister No problems noted. Son No problems noted. Daughter No problems noted. Social History Housing: House Patient Tobacco Use Status: Never used Tobacco e-Cigarette/Vaping Use: Never Used Second Hand Smoke Exposure: No Current occupational status: employed Current occupation: [employer] Current occupational exposures/hazards: No Cognitive needs: No Hearing needs: No Vision needs: No Review of Systems Const Denies chills and Denies fever(s) Eyes Denies blurry vision ENT Denies vertigo, Denies dizziness and Denies sore throat Card Denies chest pain at rest, Denies chest pain with activity, Denies diaphoresis, Denies dyspnea and Denies dyspnea on exertion Resp Denies cough, Denies dyspnea, Denies dyspnea on exertion and Denies wheezing GI Denies abdominal pain, Denies melena, Denies hematochezia, Denies constipation, Denies diarrhea and Denies loose stools Denies hematuria Musc Denies numbness and Denies tingling Skin/Breast Denies lesions Neuro Denies vertigo, Denies dizziness, Denies numbness and Denies tingling Psych Denies anxiety, Denies depression, Denies homicidal ideation, Denies suicidal ideation and Denies other (substance abuse) Aller/Immun Denies wheezing Physical exam (Primary Care) Vital Signs: Last Vital Signs Pulse 81 08/07/23 13:35 BP 140/88 H 08/07/23 13:35 Pulse Ox 97 08/07/23 13:35 Oxygen Delivery Method Room Air 08/07/23 13:35 BMI result Body Mass Index 28.6 Tobacco/Smoking Status: Tobacco use Status Tobacco use date assessed 08/07/23 08/07/23 13:40 Patient Tobacco Use Status Never used Tobacco 08/07/23 13:40 e-Cigarette/Vaping Use Never Used 08/07/23 13:40 Const General: cooperative Nutritional Appearance: well nourished Orientation/consciousness: patient oriented x3 HENMT Head: Yes normal to inspection, Yes normocephalic and Yes atraumatic Ears: TM's normal bilaterally Eyes General: appearance normal, both eyes and all related structures Alignment and Position: alignment normal and position normal Neck Neck: Yes normal visual inspection and Yes no lymphadenopathy Thyroid: Thyroid normal Resp Effort & Inspection: normal respiratory effort Auscultation: clear to auscultation bilaterally Cardio Rate: regular rate Rhythm: regular rhythm Heart sounds: S1 normal heart sound present, S2 normal heart sound present and no murmurs GI Palpation (GI): Soft to palpation and nontender Auscultation: normal bowel sounds Back/Spine/Pelvis Other: + spurlings, cervical neck pain with radicular symptoms to BUE with chin tucks, chin raises, and neck flexion Skin Rashes: no rashes Neuro General: patient oriented x3, moves all extremities, no focal motor deficits and deep tendon reflexes 2+ bilaterally Romberg Test: Negative Psych Appearance: grossly normal Mental Status: mental status grossly normal Speech and movement: Normal speech and movement present Affect: normal affect Attitude: cooperative Thought process: Normal thought process present Thought content: Normal thought content present Insight: Good insight present (Psych) Judgement: Good judgement present (Psych) Assessment and Plan Assessment & Plan (1) Cervical neck pain with evidence of disc disease: Code(s): M50.90 - Cervical disc disorder, unspecified, unspecified cervical region Plan: MRI ordered (2) Degenerative disc disease, cervical: Code(s): M50.30 - Other cervical disc degeneration, unspecified cervical region Plan: MRI ordered (3) Abnormal x-ray of cervical spine: Code(s): R93.7 - Abnormal findings on diagnostic imaging of other parts of m usculoskeletal system Plan: MRI ordered (4) Hypothyroid: Code(s): E03.9 - Hypothyroidism, unspecified (5) Dyslipidemia: Code(s): E78.5 - Hyperlipidemia, unspecified Plan The patient agreed to the use of a healthcare or medical for this encounter. Scribed for TAVARES Ji by Candis Vazquez healthcare or medical, on 08/07/2023 at 13:45 EST Orders: Orders MR cervical spine wo con Today M50.30 - Other cervical disc degeneration, unspecified cervical region, M50.90 - Cervical disc disorder, unspecified, unsp ecified cervical region, R93.7 - Abnormal findings on diagnostic imaging of other parts of musculoskeletal system Medications: New gabapentin 200 mg (2 x 100 mg) PO BEDTIME 180 caps 0RF 90 days Changed From levothyroxine 88 mcg PO DAILY 90 tabs 0RF To levothyroxine 100 mcg PO DAILY 90 tabs 0RF 90 days Refilled sumatriptan succinate do not exceed 4 doses per 24 hrs 50 mg PO BID PRN 60 tabs 4RF migraine headache 30 days Coding Level of Care Code Est Pt Prev Care 40-64y(55904) Diagnoses Cervical neck pain with evidence of disc disease M50.90 Degenerative disc disease, cervical M50.30 Abnormal x-ray of cervical spine R93.7 Hypothyroid E03.9 Dyslipidemia E78.5
== END 2023-08-07 14:14 | disposition home or self-care (01) ==
PROVIDERS: PCP Nurse Practitioner Family; Visit Provider Nurse Practitioner Family
DX: Z00.00 Encounter for general adult medical examination without abnormal findings (principal); M50.90 Cervical disc disorder, unspecified, unspecified cervical region; M50.30 Other cervical disc degeneration, unspecified cervical region; R93.7 Abnormal findings on diagnostic imaging of other parts of musculoskeletal system; E03.9 Hypothyroidism, unspecified
CPT/HCPCS: 99396

== ENCOUNTER 2023-10-15 14:37 | Outpatient (AMB) | payer BC, SELFPAY ==
--- NOTE | 2023-10-15 14:40 | A.OFFVIS_ITS ---
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 She is doing well with concerns: Vaginal irritation and dryness. Attempting to eat a healthy diet with calcium and vitamin D and stays active with exercise. Currently sexually active. STI testing offered; she accepts. Last pap smear; 2021. Last mammogram; 2022. Colonoscopy is UTD. Denies any family history of breast, ovarian or colon cancer. [facility] Medical History On beta edgar at home Right hip pain GERD (gastroesophageal reflux disease) Pernicious anemia HTN (hypertension) Migraine with aura Dyslipidemia Hypothyroid Arthritis Xanthelasma Hemorrhoids Hiatal hernia Renal calculi Surgical History Hx of colonoscopy Hx of esophagogastroduodenoscopy History of lithotripsy Family History Father Pancreatic cancer Mother Alzheimer's disease Stroke Brother No problems noted. Sister No problems noted. Son No problems noted. Daughter No problems noted. Social History Housing: House Patient Tobacco Use Status: Never used Tobacco e-Cigarette/Vaping Use: Never Used Second Hand Smoke Exposure: No Current occupational status: employed Current occupation: [employer] Current occupational exposures/hazards: No Cognitive needs: No Hearing needs: No Vision needs: No Female Reproductive History Menstrual Menopause type: natural Total pregnancies: 2 Full term: 2 Number of Living Children: 2 Date of last pap smear: 05/14/22 (neg pap and hpv) Date of Mammogram: 07/19/23 (Birad 1) Review of Systems Const All systems reviewed & are unremarkable except as noted in HPI and below Reports as per HPI Eyes Reports no additional complaints ENT Reports no additional complaints Card Reports no additional complaints Resp Reports no additional complaints GI Reports as per HPI and Reports no additional complaints Reports as per HPI Musc Reports no additional complaints Skin/Breast Reports as per HPI Neuro Reports no additional complaints Psych Reports no additional complaints Endo Reports no additional complaints Dimitri/Lymph Reports no additional complaints Aller/Immun Reports no additional complaints Physical Exam Vital Signs: Last Vital Signs BP 150/90 H 10/15/23 14:48 BMI result Body Mass Index 28.0 Const General: cooperative, healthy appearing, no acute distress, well developed and alert Orientation/consciousness: patient oriented x3 HEENT Head: Yes normal to inspection Eyes General: appearance normal, both eyes and all related structures Neck Neck: Yes normal visual inspection Thyroid: Thyroid normal Chest Chest palpation & inspection: normal inspection of the chest and other (no puckering, dimpling, peau de orange, retraction, discharge, masses) Breast/axilla inspection: normal inspection of the breasts Breast/axilla palpation: normal palpation of the breasts Resp Effort & Inspection: normal respiratory effort GI Inspection: Yes normal to inspection Palpation (GI): Soft to palpation Rectal Exam - Female: deferred General: Yes bladder normal to palpation External Female Exam: normal external appearance and normal appearance of the urethra Speculum Exam - Vagina: normal appearance of the vagina, normal palpation, normal vaginal discharge and vagina atrophic Speculum Exam - Cervix: normal appearance of the cervix and normal palpation Bimanual exam- vagina & uterus: normal bimanual exam, normal palpation, uterine size normal, bladder normal to palpation, normal palpation and non-tender Bimanual Exam- Adnexa, other: no masses Skin General skin exam: no rashes or lesions noted Rashes: no rashes Neuro General: patient oriented x3 Cognition (Neuro): normal cognition Extrem General: Yes normal to inspection Psych Attitude: cooperative Thought process: Normal thought process present Assessment & Plan Assessment & Plan (1) Encounter for well woman exam with routine gynecological exam: Code(s): Z01.419 - Encounter for gynecological examination (general) (routine) without abnormal findings Plan Discussed: Current recommendations for pap smears per ASCCP guidelines. Breast awareness, periodic self breast exams and yearly mammogram. Maintain a healthy lifestyle, well balanced diet including Calcium 1,200 mg and Vitamin D 600 IU daily, and routine exercise. Use of condoms for STI if indicated. BV panel and GC chlamydia cultures obtained today, await results for plan of care. Contact the office with any postmenopausal bleeding. All of her questions and concerns were addressed to the best of my ability. 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 This note is constructed using voice recognition software. While every effort has been made to ensure accuracy, java project manager errors may have been included. Orders: Orders Bacterial Vaginosis Panel Today N89.8 - Other specified noninflammatory di sorders of vagina CT NG by PCR Today N89.8 - Other specified noninflammatory disorders of vagina Coding Level of Care Code Est Pt Prev Care 40-64y(95656) Diagnoses Encounter for well woman exam with routine gynecological exam Z01.419
[2023-10-15 14:48] VITALS: BP 150/90; BMI 28.0
== END 2023-10-15 15:23 | disposition home or self-care (01) ==
LOC: HO.HWS 14:37
PROVIDERS: PCP Nurse Practitioner Family; Visit Provider Advanced Practice Midwife
DX: Z01.419 Encounter for gynecological examination (general) (routine) without abnormal findings (principal)
CPT/HCPCS: 99396

== ENCOUNTER 2023-10-15 14:37 | Outpatient (REF) | payer BC, SELFPAY ==
[2023-10-15 18:43] LABS: CT PCR NOT DETECTED (Not Detect.); NG PCR NOT DETECTED (Not Detect.)
[2023-10-16 12:43] LABS: BV Int Neg Control Negative (Negative); BV Int Pos Control Positive (Positive)
== END 2023-10-15 14:38 | disposition home or self-care (01) ==
LOC: HO.LAB 14:37
PROVIDERS: PCP Nurse Practitioner Family; Visit Provider Advanced Practice Midwife
DX: N89.8 Other specified noninflammatory disorders of vagina (principal)
CPT/HCPCS: 0353U; 87480; 87510; 87660

== ENCOUNTER 2023-10-15 15:19 | Outpatient (REF) | payer BC, SELFPAY | END 2023-10-15 15:20 | disposition home or self-care (01) | LOC: HO.LNP 15:19 | PROVIDERS: Visit Provider Advanced Practice Midwife | DX: Z13.89 Encounter for screening for other disorder (principal) ==

== ENCOUNTER 2024-01-05 20:47 | Observation (INO) | payer BC, SELFPAY ==
--- NOTE | 2024-01-05 | ECG_ITS ---
Test Reason : CHEST PAIN Blood Pressure : / mmHG Vent. Rate : 082 BPM Atrial Rate : 082 BPM P-R Int : 184 ms QRS Dur : 086 ms QT Int : 378 ms P-R-T Axes : 058 039 049 degrees QTc Int : 441 ms Normal sinus rhythm Possible Left atrial enlargement Borderline ECG When compared with ECG of 16-AUG-2021 18:53, No significant change was found Referred By: Generic ED Physician Electronically Signed By:DEBBIE VILLEGAS MD
--- NOTE | ~2024-01-05 | CT_ITS ---
EXAMINATION: CT ANGIOGRAM NECK AND HEAD CLINICAL INFORMATION: 2 episodes of memory loss, headache, rule out stroke COMPARISON: None. TECHNIQUE: Initial noncontrast head CT was performed. Test bolus sequences followed by intravenous administration 70 mL of Omnipaque 350. Helical imaging was performed in the axial plane from the thoracic inlet to the skull vertex. Delayed postcontrast imaging of the head was also performed. The data was processed at the certified performance technologist's workstation for generation of MIP sequences. Angled MIPs and volume rendered reformatted images were also generated at an offline 3D workstation. Stenoses are assessed in accordance with NASCET criteria unless otherwise indicated. DOSE LOWERING TECHNIQUES: This CT examination was performed using dose optimization techniques as appropriate, variously including the following: - Automated exposure control - Adjustment of mA and/or kV according to patient size (this includes techniques or standardized protocols for targeted exams were dose is matched to indication/reason for exam; i.e. extremities or head) - Use of iterative reconstruction technique DLP: 2082 mGy-cm FINDINGS: Neck CTA: There is a classic 3 vessel branching pattern of the aortic arch. Normal appearance of the visualized aortic arch and proximal branches. No evidence of stenosis at the branch origins. Both vertebral arteries are widely patent throughout their extracranial cervical course. There are calcifications at the bilateral common carotid artery bifurcations and proximal right internal carotid artery, without significant stenosis. Normal appearance of the common and internal carotid arteries without focal stenosis. Brain CTA: Normal appearance of the intradural vertebral arteries. Normal appearance of the basilar and superior cerebellar arteries. Normally opacified posterior cerebral arteries bilaterally. Normal appearance of the intradural internal carotid arteries without focal stenosis. Normal appearance of the anterior cerebral and middle cerebral arteries without focal occlusion or stenosis. Normal anterior communicating artery. Normal arborization of the middle cerebral arteries. CT Head: No intracranial mass, hemorrhage, extra-axial collection, or midline shift. The bravo-white matter differentiation is preserved. No pathologic intra-axial enhancement or regional oligemia. Mild volume loss is noted. No hydrocephalus. The mastoid air cells and paranasal sinuses remain well aerated. CT Neck: Bilateral palatine tonsilliths are noted. The thyroid gland and remaining cervical soft tissues are normal in appearance. There is disc space narrowing and endplate osteophyte formation throughout the cervical spine along with multilevel facet arthropathy. Upper Chest: No abnormalities in the visualized lung apices or upper mediastinum. CT/CT angio head neck IMPRESSION: 1. No acute intracranial findings. 2. No hemodynamically significant stenosis in the major arteries of the neck. No large vessel occlusion or significant stenosis in the intracranial circulation.
--- NOTE | ~2024-01-05 | MR_ITS ---
EXAMINATION: MR BRAIN WITHOUT CONTRAST CLINICAL INFORMATION: Retrograde amnesia. Receptive aphasia. COMPARISON: CTA head and neck from 01/06/2024. Brain MRI from 09/12/2019. TECHNIQUE: MRI of the brain was obtained using routine sequences without contrast. FINDINGS: No focal restricted diffusion is demonstrated to suggest acute or subacute cerebral ischemia. No evidence of acute or chronic hemorrhagic products on heme-sensitive imaging. Similar distribution and degree of scattered periventricular, deep white matter, callosal, and cerebellar T2 FLAIR hyperintensities consistent. The ventricles are normal in morphology and size. No abnormal mass effect. No midline shift. Normal appearance of the pituitary gland. Normal positioning of the cerebellar tonsils. Normal arterial and venous vascular flow voids are present. Normal, homogeneous marrow signal. Mild mucosal thickening of the paranasal sinuses. Mild to moderate leftward nasal septal deviation. No signal abnormalities within the mastoids. MR/MR head/brain wo con IMPRESSION: 1. No acute intracranial abnormalities. 2. Similar distribution and degree of moderate nonspecific white matter changes.
--- NOTE | ~2024-01-05 | MR_ITS ---
EXAMINATION: MR BRAIN WITHOUT CONTRAST CLINICAL INFORMATION: Retrograde amnesia. Receptive aphasia. COMPARISON: CTA head and neck from 01/06/2024. Brain MRI from 09/12/2019. TECHNIQUE: MRI of the brain was obtained using routine sequences without contrast. FINDINGS: No focal restricted diffusion is demonstrated to suggest acute or subacute cerebral ischemia. No evidence of acute or chronic hemorrhagic products on heme-sensitive imaging. Similar distribution and degree of scattered periventricular, deep white matter, callosal, and cerebellar T2 FLAIR hyperintensities consistent. The ventricles are normal in morphology and size. No abnormal mass effect. No midline shift. Normal appearance of the pituitary gland. Normal positioning of the cerebellar tonsils. Normal arterial and venous vascular flow voids are present. Normal, homogeneous marrow signal. Mild mucosal thickening of the paranasal sinuses. Mild to moderate leftward nasal septal deviation. No signal abnormalities within the mastoids. MR/MR head/brain wo con IMPRESSION: 1. No acute intracranial abnormalities. 2. Similar distribution and degree of moderate nonspecific white matter changes.
[2024-01-05 21:01] VITALS: BP 178/93; PULSE 78; RESP 16; TEMP 36.3; O2SAT 98; BMI 28.9
[2024-01-05 21:04] LABS: MANUAL DIFF FLAG NO
[2024-01-05 21:06] LABS: Basophils Absolute Auto 0.1 X10*3/uL (0.0-0.2); Basophils Percent Auto 1.1 % (0-2); Eosinophils Absolute Auto 0.5 X10*3/uL (0.0-0.4); Eosinophils Percent Auto 5.4 % (0-4); Hematocrit 39.6 % (37.0-47.0); Hemoglobin 13.4 g/dl (12.0-16.0); Imm Gran Abs Auto 0.02 X10*3/uL (0.00-0.03); Imm Gran Pct Auto 0.2 % (0.0-0.4); Lymphocytes Absolute Auto 3.9 X10*3/uL (1.2-4.9); Lymphocytes Percent Auto 45.4 % (20-40); Mean Corpuscular HGB Conc 33.8 g/dl (31.0-35.0); Mean Corpuscular Hemoglobin 30.9 pg (27.0-33.0); Mean Corpuscular Volume 91.5 fL (80.0-98.0); Mean Platelet Volume 10.7 fL (9.4-12.3); Monocytes Absolute Auto 0.9 X10*3/uL (0.1-1.2); Monocytes Percent Auto 10.3 % (2-11); Neutrophils Absolute Auto 3.2 x10*3/uL (2.0-8.3); Neutrophils Percent Auto 37.6 % (45-73); Platelet Count 274 X10*3/uL (160-400); Red Blood Count 4.33 X10*6/uL (4.20-5.50); White Blood Count 8.5 X10*3/uL (4.8-10.8)
[2024-01-05 21:24] LABS: Alanine Aminotransferase 22 U/L (0-31); Albumin Level 4.2 g/dL (3.5-5.0); Alkaline Phosphatase 99 U/L (39-117); Anion Gap 14 (12-20); Aspartate Amino Transferase 18 U/L (5-31); Bilirubin Total 0.2 mg/dL (0.0-1.0); Blood Urea Nitrogen 21 mg/dL (9-16); Calcium 9.7 mg/dL (8.4-10.2); Carbon Dioxide 25 mmol/L (22-29); Chloride 109 mmol/L (96-108); Creatinine Clr Calc Pharmacy 64.5; Estimated Glomerular Filt Rate > 60; Glucose Random 102 mg/dL (60-115); Potassium 3.6 mmol/L (3.3-5.1); Sodium 144 mmol/L (135-145); Total Protein 7.6 g/dL (6.5-8.0)
[2024-01-05 21:37] LABS: Troponin-I High Sensitivity < 2.7 ng/L (<3.5-17.0)
[2024-01-05 22:21] LABS: Influenza A PCR NEGATIVE (Negative); Influenza B PCR NEGATIVE (Negative); Resp Syncy Virus RNA Qual PCR NEGATIVE (Negative); SARS COV2 PCR INHOUSE NEGATIVE (Negative)
[2024-01-06] VITALS (8 sets, daily range): BP systolic 131–170; BP diastolic 71–86; PULSE 61–78; RESP 15–20; TEMP 36.2–36.9; O2SAT 95–100
--- NOTE | 2024-01-06 00:12 | ED.CHESTPAIN ---
HPI - Chest Pain General Chief Complaint: Chest Pain Stated Complaint: chest pain/nausuea/confusion Time Seen by Provider: 01/06/24 00:12 Source: patient and family (Daughter, Samira) Mode of arrival: ambulatory Limitations: language barrier (Trinidadian speaking, understands some Pakistani, daughter speaks Pakistani and Trinidadian) History of Present Illness HPI narrative: 58-year-old female with a history of hypertension, hyperlipidemia who presents emergency department for evaluation of 2 episodes of confusion, daily headache times 1 month, intermittent chest pain times 3 days. The patient states she has a history of migraines but is having a different headache over the last month. Over the past month she states she has been getting 2-3 headaches per day. She describes the headache as a pressure-like pain in the back of her head. She states that the headache is associated with a blocked sensation in her ears with decreased hearing. She has associated nausea. The headache will last 5-10 minutes. She states that she will get a tingly sensation in her hands and feet as well. She denies associated photophobia or phonophobia. Patient also states she has been getting intermittent chest pain not associated with exertion. She points to the sternum of her chest when asked to localize the pain. The pain is a tightness which will last 5-10 minutes. She gets 125 episodes per day. Patient states that today at around 13:00 hours while she was preparing food for dinner she had a brief episode of confusion. She could not remember where her son was, she could not remember how to make dinner. She states that this sensation lasted for approximately 3 minutes. At time she also did have a headache in the back of her head which was associated with nausea. She states that she also had an episode today where she walk the dog and had difficulty remembering exactly what happened and what she did with the dog's poop bags. She states that on , 01/02/2024 while she was at work she was talking to a co-worker who speaks Trinidadian but she was having difficulty understanding speech. She states that the sensation lasted for approximately 2 minutes and then resolved and she was able to understand her co-worker. When her daughter got home this evening around 21:00 hours her mother told her about what happened earlier in the day, the patient looked flushed and her blood pressure was elevated at 1 90/100 therefore her daughter brought her to the emergency department for evaluation. Related Data Previous Rx's Medication Instructions Recorded sumatriptan succinate 50 mg tablet 50 mg PO BID PRN migraine headache 08/07/23 30 days #60 tabs metoprolol succinate 50 mg 50 mg PO DAILY 90 days #90 tabs 08/09/23 tablet,extended release 24 hr (Toprol XL) levothyroxine 100 mcg tablet 100 mcg PO DAILY 90 days #90 tabs 08/20/23 rosuvastatin 40 mg tablet 40 mg PO DAILY 90 days #90 tabs 10/19/23 gabapentin 100 mg capsule 200 mg (2 x 100 mg) PO BEDTIME 90 11/17/23 days #180 caps Allergies Allergy/AdvReac Type Severity Reaction Status Date / Time pravastatin Allergy Unknown liver Verified 01/05/24 21:01 Review of Systems Review of Systems: Yes all other systems are reviewed and are negative [facility] Past Medical History [facility] Narrative: Social history: The patient denies tobacco, alcohol and drug use. Medical History On beta edgar at home Right hip pain GERD (gastroesophageal reflux disease) Pernicious anemia HTN (hypertension) Migraine with aura Dyslipidemia Hypothyroid Arthritis Xanthelasma Hemorrhoids Hiatal hernia Renal calculi Surgical History Hx of colonoscopy Hx of esophagogastroduodenoscopy History of lithotripsy Family History Family History Father Pancreatic cancer Mother Alzheimer's disease Stroke Brother No problems noted. Sister No problems noted. Son No problems noted. Daughter No problems noted. Social History Social History Housing: House Patient Tobacco Use Status: Never used Tobacco Smoked in Last 30 Days: No e-Cigarette/Vaping Use: Never Used Second Hand Smoke Exposure: No Use of substances other than those prescribed or required for medical reasons: No Advance Directives: No Advance Directives Information Provided: No Current occupational status: employed Current occupation: [employer] Current occupational exposures/hazards: No Cognitive needs: No Hearing needs: No Vision needs: No Physical Exam Vital Signs: Vital Signs: Last Vital Signs Temp 97.7 F 01/06/24 00:24 Pulse 63 01/06/24 01:06 Resp 16 01/06/24 00:24 BP 170/80 H 01/06/24 00:24 Pulse Ox 100 01/06/24 00:24 O2 Del Method Room Air 01/06/24 00:24 BMI result Body Mass Index 28.9 Vital signs revealed an elevated blood pressure of 178/93. Exam: General: Awake, alert in no distress Head: Normocephalic, atraumatic EENT: PERRL, Lids normal, sclera normal, conjunctiva normal, nose normal , ears normal, throat without erythema or exudates Neck: Supple, no adenopathy Lung: breath sounds symmetric, no wheezing, rales or rhonchi Chest: symmetric movement, nontender Heart: regular rate and rhythm, normal S1, S2 no murmurs or rubs Abdomen: soft, non-tender, nondistended, normal bowel sounds Back: no vertebral tenderness, no CVAT Extremities: no deformities, moves all extremities symmetrically Neuro: Awake, alert, oriented, normal speech, cranial nerves intact, moves all extremities symmetrically Psych: Pleasant, cooperative NIH Stroke Scale Time: 00:48 Level of Consciousness: Alert Level of Consciousness Questions: Answers both questions correctly Level of Consciousness Commands: Performs both tasks correctly Best Gaze: Normal Visual: No visual loss Facial Palsy: Normal Motor Arm (Right): No drift Motor Arm (Left): No drift Motor Leg (Right): No drift Motor Leg (Left): No drift Limb Ataxia: Absent Sensory: Normal Best Language: No aphasia Dysarthia: Normal Extinction and Inattention: No abnormality Score: 0 Medications Administered Discontinued Medications Generic Name Dose Route Start Last Admin Trade Name Freq PRN Reason Stop Dose Admin Diphenhydramine HCl 50 mg 01/06/24 00:39 01/06/24 01:17 Diphenhydramine Hcl 50 Mg/Ml Vial IVPUSH 01/06/24 00:40 50 mg ONCE STA Administration Sodium Chloride 1,000 mls @ 999 mls/hr 01/06/24 00:39 01/06/24 02:15 Ns IV 01/06/24 01:39 Infused .Q1H1M STA Infusion Iohexol 70 ml 01/06/24 01:04 01/06/24 01:05 Iohexol 350 Mg/Ml 100 Ml Infus..Btl IV 01/06/24 01:05 70 ml ONCE ONE Administration Ketorolac Tromethamine 15 mg 01/06/24 00:39 01/06/24 01:17 Ketorolac Tromethamine 15 Mg/Ml Vial IVPUSH 01/06/24 00:40 15 mg ONCE STA Administration Metoclopramide HCl 10 mg 01/06/24 00:39 01/06/24 01:17 Metoclopramide Hcl 10 Mg/2 Ml Vial IVPUSH 01/06/24 00:40 10 mg ONCE STA Administration Medical Decision Making Medical Decision Making [facility] Narrative: 58-year-old female with a history of hypertension, hyperlipidemia who presents emergency department for evaluation of 2 episodes of confusion, daily headache times 1 month, intermittent chest pain times 3 days. Patient had an episode 4 days prior where she was at work and was unable to understand a co-worker who spoke Trinidadian to her. She had 2 episodes today where she was having difficulty with her memory. All 3 of these episodes were brief and 1 of them was associated with the headache. She has also been having headaches different from her migraines for the past month, several episodes per day. She has also been experiencing intermittent chest pain for 3 days not associated with her activity level. When her daughter came home in the evening around 21:00 hours, she states that her mother did not look well, her mother's blood pressure was elevated therefore she brought her mother to the emergency department for evaluation. Differential diagnosis: ?Includes but is not limited to stroke, TIA, brain tumor with mass effect, migraine headache, anxiety, myocardial infarction, myocardial ischemia, chest wall musculoskeletal pain Following evaluation was ordered: CBC, CMP, PT/INR, PTT, troponin, TSH with reflex T4, CT scan of the brain without IV contrast, CT angiogram head and neck, 12 EKG Patient was initially treated with the following: IV insert, normal saline x1 L, Toradol 15 mg IV, Reglan 10 mg IV, Benadryl 50 mg IV Course: 04:41 My independent interpretation patient's laboratory evaluation is as follows: WBC normal at 8 point 5 with elevated lymphocytes 45% and elevated eosinophils 5.4%-unclear significance. Elevated chloride 109, elevated BUN 21. LFTs were normal. High sensitive troponin I was below detectable limits. Twelve EKG was unremarkable CT scan of the patient's brain revealed no acute abnormalities. CT angiogram head and neck revealed no hemodynamically significant stenosis in the major arteries of the neck and no large vessel occlusions or significant stenosis in the intracranial circulation. Given that the patient has had 2 episodes with confusion and memory loss and 1 episode of not being able to understand language, concerned that the patient may have had TIAs. I will discuss admission with the covering hospitalist. Admission/Observation Consideration of admission/observation: Escalation of care including admission/observation considered Consult Healthcare Provider Management of the patient was discussed with: Hospitalist Lab Data MDM Lab Attestation statement: I reviewed the patient's lab results. 01/05/24 21:00 01/05/24 21:00 Labs: Lab Results 01/05/24 01/06/24 Range/Units 21:00 01:15 WBC 8.5 (4.8-10.8) X10*3/uL RBC 4.33 (4.20-5.50) X10*6/uL Hgb 13.4 (12.0-16.0) g/dl Hct 39.6 (37.0-47.0) % MCV 91.5 (80.0-98.0) fL MCH 30.9 (27.0-33.0) pg MCHC 33.8 (31.0-35.0) g/dl RDW 13.0 (11.0-16.0) % Plt Count 274 (160-400) X10*3/uL MPV 10.7 (9.4-12.3) fL Immature Gran % (Auto) 0.2 (0.0-0.4) % Neut % (Auto) 37.6 L (45-73) % Lymph % (Auto) 45.4 H (20-40) % Caroline % (Auto) 10.3 (2-11) % Eos % (Auto) 5.4 H (0-4) % Baso % (Auto) 1.1 (0-2) % Lymph # (Auto) 3.9 (1.2-4.9) X10*3/uL Caroline # (Auto) 0.9 (0.1-1.2) X10*3/uL Eos # (Auto) 0.5 H (0.0-0.4) X10*3/uL Baso # (Auto) 0.1 (0.0-0.2) X10*3/uL Abs Immat Gran (auto) 0.02 (0.00-0.03) X10*3/uL Absolute Neuts (auto) 3.2 (2.0-8.3) x10*3/uL Absolute Nucleated RBC 0.000 (0.0-0.012) X10*3/uL Nucleated RBC % (auto) 0.0 (0.0-0.2) /100WBC PT 11.4 (11.1-13.3) SEC INR 0.9 (0.9-1.1) APTT 29.4 (26.0-36.8) SEC Sodium 144 (135-145) mmol/L Potassium 3.6 (3.3-5.1) mmol/L Chloride 109 H (96-108) mmol/L Carbon Dioxide 25 (22-29) mmol/L Anion Gap 14 (12-20) BUN 21 H (9-16) mg/dL Creatinine 0.87 (0.5-1.4) mg/dL Estim Creat Clear Calc 64.5 Estimated GFR > 60 Random Glucose 102 (60-115) mg/dL Calcium 9.7 (8.4-10.2) mg/dL Total Bilirubin 0.2 (0.0-1.0) mg/dL AST 18 (5-31) U/L ALT 22 (0-31) U/L Alkaline Phosphatase 99 (39-117) U/L Troponin I High Sens < 2.7 (<3.5-17.0) ng/L Total Protein 7.6 (6.5-8.0) g/dL Albumin 4.2 (3.5-5.0) g/dL TSH 0.81 (0.32-4.0) uIU/mL Thyroxine (T4) 8.4 (4.5-12.0) ug/dL Influenza Type A (PCR) NEGATIVE (Negative) Influenza Type B (PCR) NEGATIVE (Negative) RSV RNA Qual (PCR) NEGATIVE (Negative) SARS-CoV-2 RNA (RT-PCR) NEGATIVE (Negative) Independent Interpretation I performed an independent interpretation of an: EKG Interpretation: My independent interpretation patient's 12 EKG done at 20:52 hours is as follows: Normal sinus rhythm with a rate of 82, normal CA interval, QRS duration and QTC interval, no ST segment elevation, no ST segment depression, no PACs, no PVCs. Radiology Impression Discussion of test interpretation with radiology: I have reviewed the radiologist's reading. Radiologist Impression: CT head and CT angio head neck IMPRESSION: 1. No acute intracranial findings. 2. No hemodynamically significant stenosis in the major arteries of the neck. No large vessel occlusion or significant stenosis in the intracranial circulation. Dictated By: Gee Ritter MD Discharge Plan Discharge Clinical Impression: Brain TIA, Chest pain, Headache Patient Disposition: Admitted As Inpatient Prescriptions: No Action metoprolol succinate [Toprol XL] 50 mg tablet extended release 24 hr 50 mg PO DAILY 90 Days Qty: 90 2RF levothyroxine 100 mcg tablet 100 mcg PO DAILY 90 Days Qty: 90 0RF rosuvastatin 40 mg tablet 40 mg PO DAILY 90 Days Qty: 90 0RF gabapentin 100 mg capsule 200 mg PO BEDTIME 90 Days Qty: 180 0RF sumatriptan succinate 50 mg tablet 50 mg PO BID PRN (Reason: migraine headache) 30 Days Qty: 60 4RF Rx Instructions: do not exceed 4 doses per 24 hrs
[2024-01-06] MEDS: iohexoL 350 MG/ML 100 ML INFUS..BTL 70 ML IV (01:05)
--- NOTE | 2024-01-06 01:10 | PC.NURSE ---
Dr. Patton aware of bp. pt in ct scan at this time.
[2024-01-06 01:16] LABS: T4 Thyroxine 8.4 ug/dL (4.5-12.0); Thyroid Stimulating Hormone 0.81 uIU/mL (0.32-4.0)
[2024-01-06] MEDS: Metoclopramide HCl 10 MG/2 ML VIAL IVPUSH (01:17)
[2024-01-06] MEDS: 0.9 % Sodium Chloride 1,000 ML 999 ML IV (01:17)
[2024-01-06] MEDS: diphenhydrAMINE HCL 50 MG/ML VIAL IVPUSH (01:17)
[2024-01-06] MEDS: Ketorolac Tromethamine 15 MG/ML VIAL IVPUSH (01:17)
[2024-01-06 01:31] LABS: INTERNATIONAL NORM RATIO 0.9 (0.9-1.1); Prothrombin Time 11.4 SEC (11.1-13.3)
[2024-01-06 01:33] LABS: Partial Thromboplastin Time 29.4 SEC (26.0-36.8)
--- NOTE | 2024-01-06 05:19 | PC.NURSE ---
no changes to previous neuro assessment by this rn. dr. isaías larsen at bedside for admission at this time. Salvadorean video blueprint cutter unavailable at this time. daughter able to interpret at this time.
[2024-01-06] MEDS: Aspirin 81 MG TAB.CHEW 162 MG PO (05:37)
--- NOTE | 2024-01-06 06:05 | P.HPHOSP_ITS ---
History of Present Illness Date of Service: 01/06/24 Attending physician on admission: Yazan De Souza Chief Complaint: Confusion Ira Mari is a 58 years old Malay-speaking woman with past medical history significant for hyperlipidemia, hypothyroidism, severe degenerative C- spine disease and migraine headaches presents to the emergency department complaining of headache localized in the posterior aspect of her head describes a squeezing sensation. These associated with nausea without vomiting or photophobia. She reported blurry vision, tingling sensation to hands + feet and dizziness. Patient's feel that these headaches are not similar to her migraines attack. Patient also have 2 episodes of brief confusion and memory impairment. Yesterday around 13:00 she had an episode where she was not able to remember how to cook or where her son was. The patient also have another similar episode while she was walking her dog. She was unable to remember where she left the dog's poop bags. She also had issues understanding her coworker. She did not report any focal weakness or numbness to her extremities. Patient also has been experiencing episodes of chest pain that lasts for several minutes. There are no associated with palpitations, shortness on breath, fever, chills or cough. There is no history of strokes, type 2 diabetes diabetes, hypertension or heart disease. According to patient's daughter who helped with translation patient takes metoprolol for headaches. There is no history of tobacco smoking, alcohol abuse or illicit drug use. In the ED, was found to have stable vital signs. Her last blood pressure is 142/71. Blood workup showed no leukocytosis. Lymphocytosis and eosinophilia noted. Troponin is negative. TSH and free T4 normal. Viral testing for COVID- 19, influenza and RSV is negative. Head and neck CTA showed no acute intracranial abnormalities and no large vessel occlusion or stenosis. ECG showed normal sinus rhythm with no acute ischemic changes. ED tx: NS 1 L bolus, Benadryl 50 mg IV, Reglan 10 mg IV, ketorolac 15 mg IV, aspirin 162 mg PO. Review of Systems 2 Review of Systems: All 12 systems were reviewed and normal except as noted in HPI. [facility] Medical History On beta edgar at home Right hip pain GERD (gastroesophageal reflux disease) Pernicious anemia HTN (hypertension) Migraine with aura Dyslipidemia Hypothyroid Arthritis Xanthelasma Hemorrhoids Hiatal hernia Renal calculi Family History Father Pancreatic cancer Mother Alzheimer's disease Stroke Brother No problems noted. Sister No problems noted. Son No problems noted. Daughter No problems noted. Surgical History Hx of colonoscopy Hx of esophagogastroduodenoscopy History of lithotripsy Social History Housing: House Patient Tobacco Use Status: Never used Tobacco Smoked in Last 30 Days: No e-Cigarette/Vaping Use: Never Used Second Hand Smoke Exposure: No Use of substances other than those prescribed or required for medical reasons: No Advance Directives: No Advance Directives Information Provided: No Current occupational status: employed Current occupation: [employer] Current occupational exposures/hazards: No Cognitive needs: No Hearing needs: No Vision needs: No Meds Allergies Allergy/AdvReac Type Severity Reaction Status Date / Time pravastatin Allergy Unknown liver Verified 01/05/24 21:01 Active Medications: Current Medications Acetaminophen (Acetaminophen 325 Mg Tablet) 975 mg PO Q6H PRN PRN Reason: Headache Aspirin (Aspirin Enteric Coated 81 Mg Tablet.Dr) 81 mg PO DAILY LEOBARDO Gabapentin (Gabapentin 100 Mg Capsule) 200 mg PO BEDTIME LEOBARDO Levothyroxine Sodium (Levothyroxine Sodium 100 Mcg Tablet) 100 mcg PO DAILY LEOBARDO Metoprolol Succinate (Metoprolol Succinate Er 50 Mg Tab.Er.24h) 50 mg PO DAILY LEOBARDO; Protocol Non-Formulary Medication (Rosuvastatin) 40 mg PO DAILY [facility] Sodium Chloride (0.9 % Sodium Chloride Flush 3 Ml Syringe) 3 ml IVFLUSH QSHIFT LEOBARDO Physical Exam 2 Vital Signs and Narrative: Vital Signs: Last Vital Signs Temp 97.7 F 01/06/24 00:24 Pulse 78 01/06/24 05:18 Resp 17 01/06/24 05:18 BP 142/71 H 01/06/24 05:18 Pulse Ox 98 01/06/24 05:18 O2 Del Method Room Air 01/06/24 05:18 BMI result Body Mass Index 28.9 Constitutional - Awake and Alert, No apparent distress. Cooperative. HEENT - PERRLA, EOMI Heart - S1S2, RRR, No edema Lungs - Normal lung expansion, Normal respiratory effort, No respiratory distress, CTA bilaterally Abdomen - NT / ND; +BS; No rebound or guarding Extremities - No calf tenderness bilaterally, no swelling Musculoskeletal - Normal inspection, normal ROM Skin - Warm/Dry Neurological - Alert & oriented x3, CN III-XII in tact, 5/5 strength BUE and BLE Psychological - Appropriate affect Results Labs 01/05/24 21:00 01/05/24 21:00 Labs: Laboratory Results - last 24 hr 01/05/24 01/06/24 21:00 01:15 MCV 91.5 MCH 30.9 MCHC 33.8 RDW 13.0 Plt Count 274 MPV 10.7 Immature Gran % (Auto) 0.2 Neut % (Auto) 37.6 L Lymph % (Auto) 45.4 H [place] % (Auto) 10.3 Eos % (Auto) 5.4 H Baso % (Auto) 1.1 Lymph # (Auto) 3.9 [place] # (Auto) 0.9 Eos # (Auto) 0.5 H Baso # (Auto) 0.1 Abs Immat Gran (auto) 0.02 Absolute Neuts (auto) 3.2 Absolute Nucleated RBC 0.000 Nucleated RBC % (auto) 0.0 PT 11.4 INR 0.9 APTT 29.4 Anion Gap 14 Estim Creat Clear Calc 64.5 Estimated GFR > 60 Random Glucose 102 Calcium 9.7 Total Bilirubin 0.2 AST 18 ALT 22 Alkaline Phosphatase 99 Troponin I High Sens < 2.7 Total Protein 7.6 Albumin 4.2 TSH 0.81 Thyroxine (T4) 8.4 Influenza Type A (PCR) NEGATIVE Influenza Type B (PCR) NEGATIVE RSV RNA Qual (PCR) NEGATIVE SARS-CoV-2 RNA (RT-PCR) NEGATIVE Imaging Radiologist's Impressions: Impressions Head/Neck CTA 01/06/24 01:15 IMPRESSION: 1. No acute intracranial findings. 2. No hemodynamically significant stenosis in the major arteries of the neck. No large vessel occlusion or significant stenosis in the intracranial circulation. Assessment and Plan (1) Headache: Qualifiers: Headache type: unspecified Headache chronicity pattern: acute headache Intractability: not intractable Qualified Code(s): R51.9 - Headache, unspecified Status: Acute (2) Degenerative disc disease, cervical: Status: Acute (3) Hyperlipemia: Qualifiers: Hyperlipidemia type: unspecified Qualified Code(s): E78.5 - Hyperlipidemia, unspecified Status: Acute (4) Amnesia: Status: Acute Plan Ira Mari is a 58 years old woman admitted with: * Episodes of amnesia associated nausea, paresthesias and receptive aphasia. Suspecting these could be due to transient global amnesia triggered by migraine headache. TIA is a consideration but no focal weakness reported. Keeping observation. Telemetry. Check brain MRI. Check TTE. Aspirin 81 mg p.o. daily. Neurology consult. * Hyperlipidemia. Continue statin. * Chest pain. Currently asymptomatic. Recheck troponin. Continue aspirin 81 mg p.o. daily. * Severe degenerative C-spine disease. Continue gabapentin. * Hypothyroidism. Continue levothyroxine. DVT prophylaxis: SCDs. Encourage ambulation. Code status: Full Quality Stroke Does the patient have a stroke diagnosis?: No VTE Prior VTE?: No VTE Risk Level:: Medical - moderate - high VTE Device Contraindication: N/A - Device Ordered VTE Drug Contraindication: Treatment Not Indicated
[2024-01-06] MEDS: Levothyroxine Sodium 100 MCG TABLET PO (07:06)
[2024-01-06 08:16] LABS: Troponin-I High Sensitivity < 2.7 ng/L (<3.5-17.0)
--- NOTE | 2024-01-06 09:02 | PC.NURSE ---
used wardrobe specialty worker ([place]) [phone] from [phone] to complete MRI screne form
[2024-01-06] MEDS: 0.9 % Sodium Chloride Flush 3 ML SYRINGE IVFLUSH ×3 (09:03→22:35)
[2024-01-06] MEDS: Metoprolol Succinate ER 50 MG TAB.ER.24H PO (09:04)
[2024-01-06] MEDS: Aspirin Enteric Coated 81 MG TABLET.DR PO (09:04)
[2024-01-06] MEDS: Atorvastatin Calcium 80 MG TABLET PO (09:04)
--- NOTE | 2024-01-06 10:08 | PHA.MEDREC ---
Pharmacy Consult ? Medication Reconciliation Pharmacy has completed the medication reconciliation with patient's daughter Freida, confirmed all medications.
--- NOTE | 2024-01-06 11:47 | PC.NURSE ---
pt reports her PCP has wanted her to get an MRI of her C-spine d/t her recent complaints and pts previous hx of back surgery. Dr Falk made aware, plan to order in addition to MRI of head/brain
[2024-01-06 11:58] LABS: Appearance Urine Clear; Color Urine Yellow; Glucose Urine UA Negative (Negative); Leukocyte Esterase Urine Negative (Negative); Nitrite Urine Negative (Negative); PH 5.5 (5.0-9.0); Urine Blood Negative (Negative); Urine Ketones Negative (Negative); Urine Protein Negative (Neg-Trace)
--- NOTE | 2024-01-06 12:26 | PC.NURSE ---
pt off unit to MRI at this time
--- NOTE | 2024-01-06 13:17 | PM.NEUROCN ---
History of Present Illness Data of Consult Service Date: 01/06/24 Primary Care Provider: Unknown Physician HPI Reason for consult: Headache and difficulty speaking 58 years old woman who was in emergency room with complain of headache, difficulty speaking and difficulty with vision. She was having a headache for few days and headaches were sporadic. There was no associated trauma cold fever or chills. She was noted to be having some difficulty with word-finding but she also was not German speaking. She was complaining of somewhat twisted vision when she looked at things on the wall. She was slightly nauseous but there was no significant photophobia. Her daughter suffered from headaches 2. Review of Systems Review of Systems: No recent cold or flu-like illness PMFSH Past Medical History Medical History On beta edgar at home Right hip pain GERD (gastroesophageal reflux disease) Pernicious anemia HTN (hypertension) Migraine with aura Dyslipidemia Hypothyroid Arthritis Xanthelasma Hemorrhoids Hiatal hernia Renal calculi Family History Family History Father Pancreatic cancer Mother Alzheimer's disease Stroke Brother No problems noted. Sister No problems noted. Son No problems noted. Daughter No problems noted. Surgical History Surgical History Hx of colonoscopy Hx of esophagogastroduodenoscopy History of lithotripsy Social History Social History Housing: House Patient Tobacco Use Status: Never used Tobacco Smoked in Last 30 Days: No e-Cigarette/Vaping Use: Never Used Second Hand Smoke Exposure: No Use of substances other than those prescribed or required for medical reasons: No Advance Directives: No Advance Directives Information Provided: No Nutrition Risks: No Nutritional Risk Current occupational status: employed Current occupation: [employer] Current occupational exposures/hazards: No Cognitive needs: No Hearing needs: No Vision needs: No Meds Allergies Allergy/AdvReac Type Severity Reaction Status Date / Time pravastatin Allergy Unknown liver Verified 01/05/24 21:01 Active Medications: Current Medications Acetaminophen (Acetaminophen 325 Mg Tablet) 975 mg PO Q6H PRN PRN Reason: Headache Aspirin (Aspirin Enteric Coated 81 Mg Tablet.) 81 mg PO DAILY [facility] Last Admin: 01/06/24 09:04 Dose: 81 mg Atorvastatin Calcium (Atorvastatin Calcium 80 Mg Tablet) 80 mg PO DAILY [facility] Last Admin: 01/06/24 09:04 Dose: 80 mg Gabapentin (Gabapentin 100 Mg Capsule) 200 mg PO BEDTIME [facility] Levothyroxine Sodium (Levothyroxine Sodium 100 Mcg Tablet) 100 mcg PO DAILY@0600 [facility] Last Admin: 01/06/24 07:06 Dose: 100 mcg Metoprolol Succinate (Metoprolol Succinate Er 50 Mg Tab.Er.24h) 50 mg PO DAILY [facility]; Protocol Last Admin: 01/06/24 09:04 Dose: 50 mg Omeprazole (Omeprazole 20 Mg Capsule.) 20 mg PO DAILY@0630 [facility] Sodium Chloride (0.9 % Sodium Chloride Flush 3 Ml Syringe) 3 ml IVFLUSH QSHIFT [facility] Last Admin: 01/06/24 09:03 Dose: 3 ml Home Medications Medication Instructions Recorded Confirmed Last Taken Type omeprazole 20 mg capsule,delayed 20 mg PO DAILY PRN Acid Reflux 01/06/24 01/06/24 Unknown History release Physical Exam Vital Signs: Vital Signs: Last Vital Signs Temp 98.3 F 01/06/24 11:43 Pulse 74 01/06/24 11:43 Resp 18 01/06/24 11:43 BP 134/71 01/06/24 11:43 Pulse Ox 95 01/06/24 11:43 O2 Del Method Room Air 01/06/24 11:43 BMI result Body Mass Index 28.9 Neuro: Other: She was alert and awake with what seem like normal spontaneity and fluency of speech despite her difficulty with German language. Comprehension was intact. Face was symmetrical. Visual roger are full. There was no focal weakness. Deep tendon reflexes were trace with flexor plantars. Speech was normal. Results Labs 01/05/24 21:00 01/05/24 21:00 Labs: Short CBC 01/05/24 Range/Units 21:00 WBC 8.5 (4.8-10.8) X10*3/uL Hgb 13.4 (12.0-16.0) g/dl Hct 39.6 (37.0-47.0) % Plt Count 274 (160-400) X10*3/uL BMP 01/05/24 21:00 Sodium 144 Potassium 3.6 Chloride 109 H Carbon Dioxide 25 BUN 21 H Creatinine 0.87 Calcium 9.7 Liver Function 01/05/24 Range/Units 21:00 Total Bilirubin 0.2 (0.0-1.0) mg/dL AST 18 (5-31) U/L ALT 22 (0-31) U/L Alkaline Phosphatase 99 (39-117) U/L Albumin 4.2 (3.5-5.0) g/dL Urine 01/06/24 Range/Units 11:46 Urine Color Yellow Urine Appearance Clear Urine pH 5.5 (5.0-9.0) Ur Specific [place] 1.010 (1.005-1.025) Urine Protein Negative (Neg-Trace) mg/dL Urine Glucose (UA) Negative (Negative) mg/dL CT and CTA of brain and neck did not reveal any significant abnormality. Assessment and Plan (1) Migraine equivalent syndrome: Status: Acute 58 years old woman who probably suffering from migraine and its associated stroke-like symptoms including some difficulty speaking and visual obscuration. She was reassured and educated. My recommendation is to start her on topiramate 25 mg at night for migraine control. Procedures Date of Service Date of Service: 01/06/24
[2024-01-06] MEDS: Acetaminophen 325 MG TABLET 975 MG PO (18:48)
[2024-01-06] MEDS: Gabapentin 100 MG CAPSULE 200 MG PO (22:34)
[2024-01-06] MEDS: Topiramate 25 MG TABLET PO (22:49)
[2024-01-07 03:38] VITALS: BP 129/65; PULSE 68; RESP 16; TEMP 36.4; O2SAT 94
[2024-01-07 05:39] LABS: MANUAL DIFF FLAG NO
[2024-01-07 05:43] LABS: Basophils Percent Auto 0.7 % (0-2); Eosinophils Absolute Auto 0.6 X10*3/uL (0.0-0.4); Hematocrit 36.4 % (37.0-47.0); Hemoglobin 12.4 g/dl (12.0-16.0); Imm Gran Abs Auto 0.02 X10*3/uL (0.00-0.03); Imm Gran Pct Auto 0.3 % (0.0-0.4); Lymphocytes Absolute Auto 2.3 X10*3/uL (1.2-4.9); Lymphocytes Percent Auto 37.3 % (20-40); Mean Corpuscular HGB Conc 34.1 g/dl (31.0-35.0); Mean Corpuscular Hemoglobin 30.8 pg (27.0-33.0); Mean Corpuscular Volume 90.5 fL (80.0-98.0); Mean Platelet Volume 10.8 fL (9.4-12.3); Monocytes Absolute Auto 0.7 X10*3/uL (0.1-1.2); Monocytes Percent Auto 11.3 % (2-11); Neutrophils Absolute Auto 2.5 x10*3/uL (2.0-8.3); Neutrophils Percent Auto 41.4 % (45-73); Platelet Count 236 X10*3/uL (160-400); Red Blood Count 4.02 X10*6/uL (4.20-5.50); Red Cell Distribution Width 13.1 % (11.0-16.0); White Blood Count 6.1 X10*3/uL (4.8-10.8)
[2024-01-07 06:00] LABS: Alanine Aminotransferase 16 U/L (0-31); Albumin Level 3.6 g/dL (3.5-5.0); Alkaline Phosphatase 84 U/L (39-117); Anion Gap 11 (12-20); Aspartate Amino Transferase 15 U/L (5-31); Bilirubin Total 0.4 mg/dL (0.0-1.0); Blood Urea Nitrogen 19 mg/dL (9-16); Carbon Dioxide 24 mmol/L (22-29); Chloride 111 mmol/L (96-108); Cholesterol 152 mg/dL (<200); Creatinine Clr Calc Pharmacy 82.5; Estimated Glomerular Filt Rate > 60; Glucose Random 97 mg/dL (60-115); HDL Cholesterol 44 mg/dL (>40); LDL Cholesterol Calculated 85 mg/dL (<100); Potassium 3.6 mmol/L (3.3-5.1); Sodium 142 mmol/L (135-145); Total Protein 6.2 g/dL (6.5-8.0); Triglycerides 115 mg/dL (<150)
[2024-01-07] MEDS: Omeprazole 20 MG CAPSULE.DR PO (06:20)
[2024-01-07] MEDS: Levothyroxine Sodium 100 MCG TABLET PO (06:20)
[2024-01-07 07:48] VITALS: BP 109/57; PULSE 64; RESP 16; TEMP 36.7; O2SAT 94
--- NOTE | 2024-01-07 09:04 | P.DS_ITS ---
DS: Providers Provider Date of Service: 01/07/24 Date of admission: 01/06/24 05:37 Primary care physician: Unknown Physician Consults: 01/06/24 05:41 Consult to Neurology Routine Consulting Provider: Aaron Dover Reason for consultation: Receptive aphasia, headache Has provider been notified: No DS: Diagnosis Discharge Diagnosis (1) Migraine equivalent syndrome: Status: Acute DS: Summary Time Attestation Discharge Coordination Time (in mins): 35 Quality: Safe Use of Opioids Does Pt have an Active Cancer Diagnosis on the Problem List?: No Quality: Stroke Does the patient have a stroke diagnosis?: No Physical Exam Vital Signs: Vital Signs: Last Vital Signs Temp 98.0 F 01/07/24 07:48 Pulse 64 01/07/24 07:48 Resp 16 01/07/24 07:48 BP 109/57 L 01/07/24 07:48 Pulse Ox 94 01/07/24 07:48 O2 Del Method Room Air 01/07/24 07:48 BMI result Body Mass Index 28.9 DS: Data Data Completed and Pending Labs on day of discharge: Laboratory Results - last 24 hr 01/06/24 01/07/24 11:46 05:26 WBC 6.1 RBC 4.02 L Hgb 12.4 Hct 36.4 L MCV 90.5 MCH 30.8 MCHC 34.1 RDW 13.1 Plt Count 236 MPV 10.8 Immature Gran % (Auto) 0.3 Neut % (Auto) 41.4 L Lymph % (Auto) 37.3 [place] % (Auto) 11.3 H Eos % (Auto) 9.0 H Baso % (Auto) 0.7 Lymph # (Auto) 2.3 [place] # (Auto) 0.7 Eos # (Auto) 0.6 H Baso # (Auto) 0.0 Abs Immat Gran (auto) 0.02 Absolute Neuts (auto) 2.5 Absolute Nucleated RBC 0.000 Nucleated RBC % (auto) 0.0 Sodium 142 Potassium 3.6 Chloride 111 H Carbon Dioxide 24 Anion Gap 11 L BUN 19 H Creatinine 0.68 Estim Creat Clear Calc 82.5 Estimated GFR > 60 Random Glucose 97 Calcium 9.0 D Total Bilirubin 0.4 AST 15 ALT 16 Alkaline Phosphatase 84 Total Protein 6.2 L Albumin 3.6 Triglycerides 115 Cholesterol 152 LDL Cholesterol, Calc 85 HDL Cholesterol 44 Urine Color Yellow Urine Appearance Clear Urine pH 5.5 Ur Specific [place] 1.010 Urine Protein Negative Urine Glucose (UA) Negative Urine Ketones Negative Urine Blood Negative Urine Nitrite Negative Ur Leukocyte Esterase Negative Discharge Plan Discharge Anticipated Discharge Date/Time: 01/07/24 09:01 Patient Disposition: Home, Self-Care Discharge Diagnosis: Ocular Migraine Referrals: Physician,Unknown J [Primary Care Provider] - 1 Week Aaron Dover MD [Physician] - 2 Weeks Discharge Medications: New topiramate 25 mg Tablet 25 mg PO BEDTIME Qty: 30 0RF Continued metoprolol succinate [Toprol XL] 50 mg tablet extended release 24 hr 50 mg PO DAILY 90 Days Qty: 90 2RF levothyroxine 100 mcg tablet 100 mcg PO DAILY 90 Days Qty: 90 0RF rosuvastatin 40 mg tablet 40 mg PO DAILY 90 Days Qty: 90 0RF gabapentin 100 mg capsule 200 mg PO BEDTIME 90 Days Qty: 180 0RF omeprazole 20 mg capsule,delayed release(DR/EC) 20 mg PO DAILY PRN (Reason: Acid Reflux) sumatriptan succinate 50 mg tablet 50 mg PO BID PRN (Reason: migraine headache) 30 Days Qty: 60 4RF Rx Instructions: do not exceed 4 doses per 24 hrs Discharge Orders: Discharge Order (Routine); Ordered 01/07/24 Ordered By: Tim Montiel Diet: Advance to usual diet Activity on Discharge: As tolerated Stand Alone Forms: Patient Portal Discharge page Care Plan Goals: Recovery from migraine headach Health Concerns: migraine headache Plan of Treatment: Take Topomax as directed and follow up with your Richie royal week Follow up with Dr. Dover, Neurologist follow up with your primary provider in a week Assessment: see above
--- NOTE | 2024-01-07 09:07 | P.DS_ITS ---
DS: Providers Provider Date of Service: 01/07/24 Date of admission: 01/06/24 05:37 Primary care physician: Unknown Physician Consults: 01/06/24 05:41 Consult to Neurology Routine Consulting Provider: Aaron Dover Reason for consultation: Receptive aphasia, headache Has provider been notified: No DS: Diagnosis Discharge Diagnosis (1) Migraine equivalent syndrome: Status: Acute DS: Summary Hospital Course Hospital Course: Chief Complaint: Confusion Ira Mari is a 58 years old Yi-speaking woman with past medical history significant for hyperlipidemia, hypothyroidism, severe degenerative C- spine disease and migraine headaches presents to the emergency department complaining of headache localized in the posterior aspect of her head describes a squeezing sensation. These associated with nausea without vomiting or photophobia. She reported blurry vision, tingling sensation to hands + feet and dizziness. Patient's feel that these headaches are not similar to her migraines attack. Patient also have 2 episodes of brief confusion and memory impairment. Yesterday around 13:00 she had an episode where she was not able to remember how to cook or where her son was. The patient also have another similar episode while she was walking her dog. She was unable to remember where she left the dog's poop bags. She also had issues understanding her coworker. She did not report any focal weakness or numbness to her extremities. Patient also has been experiencing episodes of chest pain that lasts for several minutes. There are no associated with palpitations, shortness on breath, fever, chills or cough. There is no history of strokes, type 2 diabetes diabetes, hypertension or heart disease. According to patient's daughter who helped with translation patient takes metoprolol for headaches. There is no history of tobacco smoking, alcohol abuse or illicit drug use. In the ED, was found to have stable vital signs. Her last blood pressure is 142/71. Blood workup showed no leukocytosis. Lymphocytosis and eosinophilia noted. Troponin is negative. TSH and free T4 normal. Viral testing for COVID- 19, influenza and RSV is negative. Head and neck CTA showed no acute intracranial abnormalities and no large vessel occlusion or stenosis. ECG showed normal sinus rhythm with no acute ischemic changes. ED tx: NS 1 L bolus, Benadryl 50 mg IV, Reglan 10 mg IV, ketorolac 15 mg IV, aspirin 162 mg PO. Hospital course: She presented with stroke-like symptoms, including difficulty speaking, some v isual changes, transient confusion, and headache. CT head and MRI were unremarkable. She was evaluated by a neurologist, and a diagnosis of ocular migraine was made with a recommendation to start Topamax 25 mg at bedtime. Her symptoms have significantly improved, and she will be discharged home. Final diagnosis: Ocular Migraine Time Attestation Discharge Coordination Time (in mins): 35 Quality: Safe Use of Opioids Does Pt have an Active Cancer Diagnosis on the Problem List?: No Quality: Stroke Does the patient have a stroke diagnosis?: No Physical Exam Vital Signs: Vital Signs: Last Vital Signs Temp 98.0 F 01/07/24 07:48 Pulse 64 01/07/24 07:48 Resp 16 01/07/24 07:48 BP 109/57 L 01/07/24 07:48 Pulse Ox 94 01/07/24 07:48 O2 Del Method Room Air 01/07/24 07:48 BMI result Body Mass Index 28.9 General: AO X 3, no acute distress Resp: CTA bilateral CVS: S1,S2,RRR GI: +BS, NT, no distention Skin: No rash Neuro: motor grossly intact Psych: appropriate affect DS: Data Data Completed and Pending Labs on day of discharge: Laboratory Results - last 24 hr 01/06/24 01/07/24 11:46 05:26 WBC 6.1 RBC 4.02 L Hgb 12.4 Hct 36.4 L MCV 90.5 MCH 30.8 MCHC 34.1 RDW 13.1 Plt Count 236 MPV 10.8 Immature Gran % (Auto) 0.3 Neut % (Auto) 41.4 L Lymph % (Auto) 37.3 [place] % (Auto) 11.3 H Eos % (Auto) 9.0 H Baso % (Auto) 0.7 Lymph # (Auto) 2.3 [place] # (Auto) 0.7 Eos # (Auto) 0.6 H Baso # (Auto) 0.0 Abs Immat Gran (auto) 0.02 Absolute Neuts (auto) 2.5 Absolute Nucleated RBC 0.000 Nucleated RBC % (auto) 0.0 Sodium 142 Potassium 3.6 Chloride 111 H Carbon Dioxide 24 Anion Gap 11 L BUN 19 H Creatinine 0.68 Estim Creat Clear Calc 82.5 Estimated GFR > 60 Random Glucose 97 Calcium 9.0 D Total Bilirubin 0.4 AST 15 ALT 16 Alkaline Phosphatase 84 Total Protein 6.2 L Albumin 3.6 Triglycerides 115 Cholesterol 152 LDL Cholesterol, Calc 85 HDL Cholesterol 44 Urine Color Yellow Urine Appearance Clear Urine pH 5.5 Ur Specific [place] 1.010 Urine Protein Negative Urine Glucose (UA) Negative Urine Ketones Negative Urine Blood Negative Urine Nitrite Negative Ur Leukocyte Esterase Negative Discharge Plan Discharge Anticipated Discharge Date/Time: 01/07/24 09:01 Patient Disposition: Home, Self-Care Discharge Diagnosis: Ocular Migraine Referrals: Aaron Dover MD [Physician] - 2 Weeks Physician,Marilee J [Primary Care Provider] - 1 Week Discharge Medications: New topiramate 25 mg Tablet 25 mg PO BEDTIME Qty: 30 0RF Continued metoprolol succinate [Toprol XL] 50 mg tablet extended release 24 hr 50 mg PO DAILY 90 Days Qty: 90 2RF levothyroxine 100 mcg tablet 100 mcg PO DAILY 90 Days Qty: 90 0RF rosuvastatin 40 mg tablet 40 mg PO DAILY 90 Days Qty: 90 0RF gabapentin 100 mg capsule 200 mg PO BEDTIME 90 Days Qty: 180 0RF omeprazole 20 mg capsule,delayed release(DR/EC) 20 mg PO DAILY PRN (Reason: Acid Reflux) sumatriptan succinate 50 mg tablet 50 mg PO BID PRN (Reason: migraine headache) 30 Days Qty: 60 4RF Rx Instructions: do not exceed 4 doses per 24 hrs Discharge Orders: Discharge Order (Routine); Ordered 01/07/24 Ordered By: Tim Montiel Diet: Advance to usual diet Activity on Discharge: As tolerated Stand Alone Forms: Patient Portal Discharge page Care Plan Goals: Recovery from migraine headach Health Concerns: migraine headache Plan of Treatment: Take Topomax as directed and follow up with your Richie royal week Follow up with Dr. Dover, Neurologist follow up with your primary provider in a week Assessment: see above
--- NOTE | 2024-01-07 09:18 | MHC.CM.PN ---
FARA 01/07/24 Female DX TIA Lives with her spouse and son. She is independent with all functional mobility. She declined the offer to document a HCP. She did take a form home with her to complete with family. Instructions to complete the HCP were provided.DP home self care. Patients son will provide transportation home. Discharge today
[2024-01-07] MEDS: Metoprolol Succinate ER 50 MG TAB.ER.24H PO (09:36)
[2024-01-07] MEDS: Aspirin Enteric Coated 81 MG TABLET.DR PO (09:36)
[2024-01-07] MEDS: Atorvastatin Calcium 80 MG TABLET PO (09:36)
== END 2024-01-07 10:51 | disposition home or self-care (01) ==
LOC: HO.ED 01-06 05:12 → HO.EDOVER 01-06 05:43 → HO.S3 01-06 17:59
PROVIDERS: Admitting Provider Internal Medicine; Emergency Provider Emergency Medicine Emergency Medical Services; PCP Internal Medicine; Visit Provider Internal Medicine
DX: G43.B0 Ophthalmoplegic migraine, not intractable (principal); R07.9 Chest pain, unspecified; R41.3 Other amnesia; E78.5 Hyperlipidemia, unspecified; I10 Essential (primary) hypertension; R41.0 Disorientation, unspecified; E03.9 Hypothyroidism, unspecified; Z11.52 Encounter for screening for COVID-19; Z20.828 Contact with and (suspected) exposure to other viral communicable diseases
CPT/HCPCS: 0241U; 36415; 70496; 70498; 70551; 80053; 80061; 81003; 84436; 84443; 84484; 85025; 85610; 85730; 93005; 96361; 96374; 96375; 97162; 97166; 99221; 99285; J1200; J1885; J2765; Q9967

== ENCOUNTER → 2024-01-05 20:52 | Outpatient (BNV) | payer BC, SELFPAY | PROVIDERS: Admitting Provider Internal Medicine; Emergency Provider Emergency Medicine Emergency Medical Services; Visit Provider Internal Medicine Cardiovascular Disease | DX: R07.9 Chest pain, unspecified (principal) | CPT/HCPCS: 93010 ==

== ENCOUNTER → 2024-01-06 05:37 | Outpatient (BNV) | payer BC, SELFPAY | PROVIDERS: Admitting Provider Internal Medicine; Emergency Provider Emergency Medicine Emergency Medical Services; Visit Provider Psychiatry & Neurology Neurology | DX: G43.109 Migraine with aura, not intractable, without status migrainosus (principal) | CPT/HCPCS: 99222 ==

== ENCOUNTER → 2024-01-06 05:37 | Outpatient (BNV) | payer BC, SELFPAY | PROVIDERS: Admitting Provider Internal Medicine; Emergency Provider Emergency Medicine Emergency Medical Services; Visit Provider Internal Medicine | DX: G43.109 Migraine with aura, not intractable, without status migrainosus (principal) | CPT/HCPCS: 99222; 99239 ==

== ENCOUNTER → 2024-07-24 15:30 | Outpatient (BNV) | payer BC, SELFPAY | PROVIDERS: PCP Internal Medicine; Visit Provider Internal Medicine | DX: Z12.31 Encounter for screening mammogram for malignant neoplasm of breast (principal) | CPT/HCPCS: 77063; 77067 ==

== ENCOUNTER 2024-07-24 15:33 | Outpatient (REF) | payer BC, SELFPAY ==
--- NOTE | ~2024-07-24 | MM_ITS ---
EXAMINATION: MM SCREENING DIGITAL BREAST TOMOSYNTHESIS, BILATERAL CLINICAL INFORMATION: Screening. Asymptomatic. COMPARISON: Mammography: Comparison is made with available priors TECHNIQUE: Digital breast mammography with tomosynthesis is performed in both the craniocaudal and mediolateral oblique views along with computer-aided detection (CAD). FINDINGS: There are scattered areas of fibroglandular density (ACR BI-RADS breast composition Category b). There are no significant masses, abnormal calcifications, or other abnormalities. MM/MM tomosynthesis screening BI IMPRESSION: No mammographic evidence of malignancy. ASSESSMENT: BI-RADS BI-RADS 1 - Negative RECOMMENDATION: Routine annual mammography screening. 1 year F/U This examination should not preclude the clinical evaluation of a suspicious palpable abnormality. This patient's information was entered into a reminder system with a target due date for their next mammogram. Electronically signed by: Francia Wilson DO 08/05/2024 03:17 PM EDT
== END 2024-07-24 15:34 | disposition home or self-care (01) ==
LOC: HO.MAMMO 15:33
PROVIDERS: PCP Internal Medicine; Visit Provider Internal Medicine
DX: Z12.31 Encounter for screening mammogram for malignant neoplasm of breast (principal)
CPT/HCPCS: 77063; 77067

== ENCOUNTER 2025-01-02 07:25 | Outpatient (REF) | payer BC, SELFPAY ==
--- OUTSIDE RECORDS SUMMARY | 2025-01-02 07:27 | XMS_ITS | Encounter Summary ---
Author Organization [employer] Address [address] [facility] [address]t [place] [address] Care Team Providers Care Belt Machine Operator Name Role Phone Colt Hartley MD Primary Care Provider + [phone] Encounter Details Date Type Department Care Team (Late st Contact Info) Description 03/20/2024 Orders Only [facility] [address] [place] [address] Provider, Not In System Social History Tobacco Use Types Packs/Day Years Used Date Smoking Tobacco: Never Passive Smoke Exposure: Past Smokeless Tobacco: Never Alcohol Use Standard Drinks/Week Comments Not Currently 0 (1 standard drink = 0.6 oz pur e alcohol) Alcohol Answer Date Recorded How often do you have a drink containing alcohol ? 0 01/22/2024 How many drinks containing a lcohol do you have on a typical day when you are drinking? 0 01/22/2024 How often do you have six or more drinks on one occasion? 0 01/22/2024 Housing Stability Answer Date Recorded What is your housing situation today? I have [place] 12/04/[address] you li ve. Do you have problems with any of the following? None of the above 12/04/2023 Food Insecurity Answer Date Recorded Within the past 12 months, y ou worried that your food would run out before you got money to buy more: Never True 12/04/2023 Within the past 12 months,th e food you bought just didn't last and you didn't have enough money to get more: Never True 04/2024 Transportation Answer Date Recorded In the past 12 months, has l ack of transportation kept you from medical appts, meetings, work or from getting things needed for daily living? No 12/04/2023 Intimate Partner Violence Answer Date R ecorded Within the last year, have y ou been afraid of your partner or ex-partner? 2 01/22/2024 Within the last year, have y ou been humiliated or emotionally abused in other ways by your partner or ex-partner? 2 Within the last year, have y ou been kicked, hit, slapped, or otherwise physically hurt by your partner or ex-partner? 2 01/22/2024 Within the last year, have y ou been raped or forced to have any kind of sexual activity by your partner or ex-partner? 2 01/22/2024 Utilities Answer Date Recorded In the past 12 months, has t he electric, gas, oil or water company threatened to shut off services in your home? No 12/04/2023 Depression Answer Date Recorded Patient Health Questionnaire-2 Score 0 12/04/2023 Comments Unknown Sex and Gender Information Value Date Recorded Sex Assigned at Female 12/03/2023 10:27 AM EST Legal Sex Female 9:55 AM EST Gender Identity Female 12/03/2023 10:27 AM EST Sexual Orientation Straight 12/03/2023 10 :27 AM EST documented as of this encounter Plan of Treatment Upcoming Encounters Date Type Department Care Team (Late st Contact Info) Description 01/04/2025 9:00 AM EDT Office Visit [facility] [address] [place] [phone] Colt Hartley MD [address] [place] [phone] documented as of this encounter Procedures Procedure Name Priority Date/Time Associated Diagnosis Comments HM PAP/HPV Routine 05/14/2022 1:01 PM EDT HM COLONOSCOPY Routine 11/23/2020 12:59 PM EST documented in this encounter Results * HM PAP/HPV (05/14/2022 1:01 PM EDT) us Not In System Provider HEALTH MAINTENANCE Final Result * Hm Colonoscopy (11/23/2020 12:59 PM EST) us Not In System Provider HEALTH MAINTENANCE Final Result documented in this encounter Visit Diagnoses Not on filedocumented in this encounter Care Teams Belt Machine Operator Relationship Specialty Start Date End Date Colt Hartley MD [address] [place] [address] PCP - General Internal Medicine 12/25/23 documented as of this encounter
--- OUTSIDE RECORDS SUMMARY | 2025-01-02 07:27 | XMS_ITS | Encounter Summary ---
Author Organization [employer] Address [address] [facility] 7 [place] [address] Care Team Providers Care Branner Machine Tender Name Role Phone Colt Hartley MD Primary Care Provider + [phone] Reason for Visit * Reason Comments Med Refill Encounter Details Date Type Department Care Team ([facility] st Contact Info) Description 12/11/[address] [phone] Colt Hartley MD [address] [place], [place] [phone] Migraine without status migrainosus, not intractable, unspecified migraine type Social History Tobacco Use Types Packs/Day Years [...] the past 12 months, has t he SHADOW, gas, oil or water company threatened to [...] AM EST documented as of this encounter Miscellaneous Notes * Telephone Encounter - Colt Hartley MD - 12/11/2024 8:46 AM EST Approve 3 refills * Telephone Encounter - Pearl Blanchard - 12/11/2024 7:56 AM EST PCP: Colt Hartley MD Last in-person office visit: 04/13/2024 Colt Hartley MD Lab Results Component Value Date BUN 14 01/04/2024 CREATININE 0.69 01/04/2024 K 4.2 01/04/2024 TSH 1.62 04/11/2024 Assessment: [] Protocol passed [] Lab due [] Appointment due Plan: [] Please refill for 90 days [] Lab [] BMP [] TSH [] A1C [] Appointment due: Future Appointments Date Time Provider Department Center 01/04/2025 9:00 AM Colt Hartley MD [facility] Comments: documented in this encounter Plan of Treatment Upcoming Encounters Date Type Department Care Team (Late st Contact Info) Description 01/04/2025 9:00 AM EDT Office Visit [facility] [address] [place] [phone] Colt Hartley MD [address] [place] [phone] documented as of this encounter Visit Diagnoses Diagnosis Migraine without status migrainosus, not intractable, unspecified migraine type documented in this encounter Care Teams Branner Machine Tender Relationship Specialty Start Date End Date Colt Hartley MD [address] [place] [phone] PCP - General Internal Medicine 12/25/23 documented as of this encounter
--- OUTSIDE RECORDS SUMMARY | 2025-01-02 07:27 | XMS_ITS | Encounter Summary ---
Author Organization [employer] Address [address] [facility] 7 [place] [address] Care Team Providers Care Broadband Technician Name Role Phone Colt Hartley MD Primary Care Provider + [phone] Encounter Details Date Type Department Care Team (Late st Contact Info) Description 12/26/2024 Orders Only [facility] [address] [place] [phone] Colt Hartley MD [address] [place] [phone] Other migraine without status migrainosus, not intractable (Primary Dx); Hypercholesteremia; Hypothyroidism, unspecified type Social History Tobacco Use Types Packs/Day [...] Description 01/04/2025 9:00 AM EDT Office Visit [facility] [address] [place] [phone] Colt Hartley MD [address] [place] [phone] Scheduled Orders Name Type Priority Associated Diagnoses Orde r Schedule CBC auto differential Lab Routine Other migraine without status migrainosus, not intractable Hypercholesteremia Hypothyroidism, unspecified type Expected: 12/26/2024, Expires: 12/26/2025 Comprehensive Metabolic Panel Lab Routine Other migraine without status migrainosus, not intractable Hypercholesteremia Hypothyroidism, unspecified type Expected: 12/26/2024, Expires: 12/26/2025 Lipid Panel with Reflex to Direct LDL Lab Routine Other migraine without status migrainosus, not intractable Hypercholesteremia Hypothyroidism, unspecified type Expected: 12/26/2024 (Approximate), Expires: 12/26/2025 TSH with Reflex to Free T4 Lab Routine Other migraine without status migrainosus, not intractable Hypercholesteremia Hypothyroidism, unspecified type Expected: 12/26/2024, Expires: 12/26/2025 Vitamin B12 Lab Routine Other migraine without status migrainosus, not intractable Hypercholesteremia Hypothyroidism, unspecified type Expected: 12/26/2024, Expires: 12/26/2025 Folate, Serum Lab Routine Other migraine without status migrainosus, not intractable Hypercholesteremia Hypothyroidism, unspecified type Expected: 12/26/2024 (Approximate), Expires: 12/26/2025 documented as of this encounter Visit Diagnoses Diagnosis Other migraine without status migrainosus, not intractable- Primary Hypercholesteremia Pure hypercholesterolemia Hypothyroidism, unspecified type documented in this encounter Care Teams Broadband Technician Relationship Specialty Start Date End Date Colt Hartley MD [address] [place] [phone] PCP - General Internal Medicine 12/25/23 documented as of this encounter
--- OUTSIDE RECORDS SUMMARY | 2025-01-02 07:27 | XMS_ITS | Clinical Summary ---
Author Organization [facility] Address [address] [place] [address] Care Team Providers Care Cisco Administrator Name Role Phone Unavailable Primary Care Provider Unavailabl e Social History Tobacco Use Types Packs/Day Years Used Date Smoking Tobacco: Never Assessed Sex and Gender Information Value Date Recorded Sex Assigned at Not on file Gender Identity Not on file Sexual Orientation Not on file Plan of Treatment Health Maintenance Due Date Last Done Comments Hepatitis C Virus Screening 1965 HIV Screening 1977 DTaP/Tdap/Td Vaccines (1 - Tdap) 1983 Pneumococcal Vaccines 50+ (1 of 1 - PCV) 2014 Zoster (Shingles) Vaccine (1 of 2) 2014 COVID-19 Vaccine ( - 2023-2 5 season) 2024 RSV Vaccine 60 years and old er and Patients (1 - 1-dose 75+ series) 2039 Hepatitis B Vaccines Aged Out No long er eligible based on patient's age to complete this topic Pneumococcal Vaccine: Pediat ibeth (0-5 Years) and At-Risk Patients (6 to 49 Years) Aged Out No longer eligible b ased on patient's age to complete this topic
--- OUTSIDE RECORDS SUMMARY | 2025-01-02 07:27 | XMS_ITS | Data Portability ---
Author Organization [place] [facility] Lili Barrios AONE [place] Address [address] [place] [id number] Care Team Providers Care Solar Sales Name Role Phone JEFFREY RODRIGUEZ Primary Care Provider [phone] Assessment Encounter Date Assessment Date Assessment LastModified by Organization Details LastModified Time 01/10/2024 01/10/2024 Patient is a 58-year-old female who presents with progressively worsening neck pain. She has had pain in her neck for many years but over the last 3 weeks symptoms have progressed. She got worse after Osteopathic manipulation. She had confusion, dizziness, and balance issues. Recent outside imaging reports were reviewed. No films available for today's visit. She was admitted to [facility] and a CVA was ruled out as the source. She cannot get into see her primary care provider for a month. She does not wish to go back to her DO. She has constant paresthesias in her arms, greatest on the left. With the above symptoms, an MRI of the cervical spine will be obtained to rule out spinal stenosis and cord compression. She was offered a prednisone taper and eager to proceed. The risk, benefits and potential side effects were reviewed. She will follow-up in 2 weeks to review the findings. She will be notified of the results and if any concerning findings are seen, she can be seen sooner. All questions were answered to her and her daughter satisfaction. She is from [facility] but wish to continue with care in [place]. She is aware we do not have any surgical spine providers that go to [place]. [email or web address] Not available 01/10/2024 16:55:39 01/22/2024 01/22/2024 Patient returns today with improved neck pain and arm pain, but has ongoing paresthesias in her left hand. We reviewed the MRI findings with moderate to severe left foraminal narrowing at C4-5 and moderate left foraminal narrowing at C5-6. She had made notable improvement since her last visit and now is willing to try a course of physical therapy. With her ongoing numbness, she will follow-up in 1 month to assess progress, sooner for any complications. 01/10/2024 LOLA: Patient is a 58-year-old female who presents with progressively worsening neck pain. She has had pain in her neck for many years but over the last 3 weeks symptoms have progressed. She got worse after Osteopathic manipulation. She had confusion, dizziness, and balance issues. Recent outside imaging reports were reviewed. No films available for today's visit. She was admitted to [facility] and a CVA was ruled out as the source. She cannot get into see her primary care provider for a month. She does not wish to go back to her DO. She has constant paresthesias in her arms, greatest on the left. With the above symptoms, an MRI of the cervical spine will be obtained to rule out spinal stenosis and cord compression. She was offered a prednisone taper and eager to proceed. The risk, benefits and potential side effects were reviewed. She will follow-up in 2 weeks to review the findings. She will be notified of the results and if any concerning findings are seen, she can be seen sooner. All questions were answered to her and her daughter satisfaction. She is from [facility] but wish to continue with care in [place]. She is aware we do not have any surgical spine providers that go to [place]. Not available 01/22/2024 15:01:08 03/02/2024 03/02/2024 58-year-old woman returns for continued management of her neck and left arm pain. Her MRI performed at [facility] on January 13, 2024 revealed moderate to severe left foraminal narrowing at C4-5 with moderate left foraminal narrowing at C5-6. Today she returns with her daughter Sadia who helps with interpretation. She continues to have meaningful neck and left arm pain. In the past she had epidural steroid injections. The first 1 in 2015 was helpful. A second 1 in 2018 was of no benefit. Physical examination is significant for 4/5 strength of left thumb to small finger pinch. We discussed options. It is not exactly clear why she has distal weakness with the MRI revealing more proximal stenosis. She will pursue home traction. She is given information on a Garzon traction unit. She is referred to the neurologist for an EMG. She will follow-up in 2 months [email or web address] Not available 03/02/2024 13:40:28 Plan of Treatment Reminders Order Date Submit Date Provider Last Modified By Organization Details Last Modified Time Details Appointments None recorded. Lab None recorded. Referral neurologist referral - Left upper extremity EMGs/NCV 2023 024 [facility], [address], [place], [address], 4 14:12:16 physical therapist referral - Frequency: 2-3 visits per week for 6 weeksTherap y: Evaluate and TreatModali ties:As neededGoal of Therapy: Cervical stabilizati on, myofascial release, strengtheni ng, decreased pain, and progress to home exercise program. Consider traction trial if radicular complaints present. 2023 024 [email or web address] Not available 15:01:00 Procedures None recorded. Surgeries None recorded. Imaging XR, cervical spine, 2 or 3 view 2023 024 [email or web address] 21 [facility], [address], [address], [place], [address], 4 08:43:02 MRI, cervical spine, w/o contrast - Neck pain, upper extremity paresthesia s bilaterally , left greater than right, balance issues and advanced degenerativ e changes in the cervical spine. Rule out cord compression or severe foraminal stenosis.Re cent admission to [facility] ruled out CVA or intracrania l bleed. 2023 024 JAYLEN Not available 4 16:16:44 Medication Orders prednisone 10 mg tablet 2023 024 [facility] [id number], [address], [place], [id number], 13:58:37 Patient TargetsNo targets recorded. Patient Instructions Encounter Date Encounter Id Patient Instructions Last Modified By Organization Details Last Modified Time 01/10/2024 [id number] views of the cervical spine were obtained in the [place] office on 01/10/2024 including AP and lateral. X-rays demonstrated degenerative changes throughout the cervical spine, greatest in the mid cervical region. Straightening. No evidence of spondylolisthesis or compression fracture. Images interpreted by: Tu Aparicio PA-C [email or web address] Not available 01/10/2024 16:54:30 Reason for Referral Physical Therapist Referral for Cervical spondylosis Frequency: 2-3 visits per week for 6 weeksTherapy: Evaluate and TreatModalities:As neededGoal of Therapy: Cervical stabilization, myofascial release, strengthening, decreased pain, and progress to home exercise program. Consider traction trial if radicular complaints present. Referring Physician: Tu Aparicio, Orthopedic Surgery, Encounter Date: 01/22/2024 Neurologist Referral for Cer vical radiculopathy Left upper extremity EMGs/NCV Referring Physician: Gopal Pinto, Orthopedic Surgery, Encounter Date: 03/02/2024 Results Created Date Observation Date Name Description Value Unit Range Abnormal Flag Note LastModifiedBy Organization Detail LastModifiedTime 01/13/20 24 XR, lumba r spine No observ ation record ed. [email or web address] Not Available 2023 09:13:18 01/13/20 24 XR, cervi monisha spine No observ ation record ed. Not Available 2023 09:17:25 01/13/20 24 XR, cervi monisha spine No observ ation record ed. Not Available 2023 09:18:29 01/13/20 24 MRI, cervi monisha spine , w/o contr ast No observ ation record ed. Not Available 2023 09:21:03 01/15/20 24 01/13/2024 MRI, cervi monisha spine , w/o contr ast No observ ation record ed. [email or web address] [facility] [address] [place] [address], [place], [address], 01/16/2024 11:27:50 Result Notes None recorded. Problems Name Problem SNOMED Code Status Onset Date Resolution Date Notes Provider Name and Address Organization Details Recorded Time Cervical spondylosis 299723117 Active 2023 TU APARICIO PA-C [address], [place], [address], [place] [facility] 4 16:46:20 Impairment of balance 568164779 Active 2023 TU APARICIO PA-C [address], [place], [address], [place] [facility], [facility] 4 16:46:37 Neck pain 89962958 Active 2023 TU APARICIO PA-C [address], [place], [address], [place] [facility], [facility] 4 14:46:53 Cervical radiculopathy 22628981 Active 2023 Gopal Pinto MD [address], [place], [address], [place] [facility] 4 13:38:56 Problem Notes None recorded. Procedures Surgical History None recorded. Imaging Results Imaging Date Name Status LastModified by Organiz ation Details LastModified Time 01/13/2024 XR, lumbar spine completed [email or web address] Information not available 01/13/2024 09:13:18 01/13/2024 XR, cervical spine completed [email or web address] Information not available 01/13/2024 09:17:25 01/13/2024 XR, cervical spine completed Information not available 01/13/2024 09:18:29 01/13/2024 MRI, cervical spine, w/o contrast completed Information not available 01/13/2024 09:21:03 01/13/2024 MRI, cervical spine, w/o contrast completed [email or web address] [facility] [address], [place], [address], 01/16/2024 11:27:50 Procedure Notes None recorded. Medical Equipment None Reported. Allergies Allergen ID Allergen Name Allergen Category Reaction Reaction Severity Criticality Documentation Date Start Date Code Code System Note Provider Name and Address Organization Details Recorded Time 53287 pravastat in medicatio n Not available Not available Not available 01/10/2024 64800 RxNorm Federico Wheat null, [place] [facility] 16:12:23 Medications Name Sig Start Date Stop Date Status Note LastModified by Organization Details LastModified Time binaxnow cov kit home anoop 01/09 completed Not Available Not Available Not Available prednisone 10 mg tablet Take 4 tablet(s) EVERY DAY by oral route for 2 days, then decrease by 1 pill every 2 days until gone (4,4,3,3, 2,2,1,1) 03/02 completed Not Available Not Available Not Available metoprolol succinate ER 50 mg tablet,exte nded release 24 hr TAKE 1 TABLET BY MOUTH DAILY active Not Available Not Available No t Available methylpredn isolone 4 mg tablet TAKE 2 TABLETS BY MOUTH TWICE DAILY 01/09 completed Not Available Not Available Not Available sumatriptan 50 mg tablet active Not Available Not Available Not Available topiramate 25 mg tablet TAKE 1 TABLET BY MOUTH AT BEDTIME 03/02 completed Not Available Not Available Not Available levothyroxi ne 100 mcg tablet TAKE 1 TABLET BY MOUTH DAILY active Not Available Not Available No t Available levothyroxi ne 88 mcg tablet TAKE 1 TABLET BY MOUTH DAILY 01/09 completed Not Available Not Available Not Available omeprazole 20 mg capsule,del ayed release TAKE 1 CAPSULE BY MOUTH ONCE A DAY active Not Available Not Available No t Available gabapentin 100 mg capsule TAKE 2 CAPSULES BY MOUTH EVERY NIGHT AT BEDTIME active Not Available Not Available No t Available methylpredn isolone 4 mg tablets in a dose pack FOLLOW PACKAGES DIRECTION S 01/09 completed Not Available Not Available Not Available rosuvastati n 40 mg tablet TAKE 1 TABLET BY MOUTH DAILY active Not Available Not Available No t Available BinaxNOW COVID-19 Ag Self Test kit FOLLOW PACKAGE DIRECTION S 01/09 completed Not Available Not Available Not Available Vitals Date Recorded Body height Body mass index (BMI) Body weight Provider Name and Address Organization Details Last Updated DateTime 01/10/2024 157.48 cm 28.7 kg/m2 [address] [place] [facility] 01/10/2024 16:11:45 Date Recorded Body height Body mass index (BMI) Body weight Provider Name and Address Organization Details Last Updated DateTime 01/22/2024 157.48 cm 28.7 kg/m2 [address] [place] [facility] 01/22/2024 14:32:23 Date Recorded Body height Body mass index (BMI) Body weight Provider Name and Address Organization Details Last Updated DateTime 03/02/2024 157.48 cm 28.7 kg/m2 [id number] akira Guajardo [place] [facility] 03/02/2024 13:16:44 Social History Question Answer Notes LastModified by Organizat ion Details LastModified Time Tobacco Smoking Status Never Smoker Federico Alanis null, [facility], [facility] 01/10/2024 16:11:51 What Is Your Level Of Alcohol Consumption? None [email or web address] Information not available 01/10/2024 Sex: Unknown Functional Status None recorded. Mental Status None recorded. Family History Nothing Reported. Medical History Condition Response Hypothyroidism Y Hypertension Y Gynecological HistoryNo gynecological history recorded. Obstetrics History GPAL:G 0 P 0 0 0 0 Past Encounters Encounter ID Performer Location Encounter Start Date Encounter Closed Date Diagnosis/Indication Diagnosis SNOMED-CT Code Diagnosis ICD10 Code Diagnosis Note [id number] [facility] [address] [place] [address] [place] [id number] 01/10/2024 15:53:07 01/10/2024 16:31:25 Neck pain 85798700 M54.2 Cervical spondylosis 387 681181 M47.22 Additional diagnosis detail: [place] [id number] Gopal Pinto MD [address] [place] [phone] 01/22/2024 14:20:20 01/22/2024 14:56:23 Cervical spondylosis 748275957 M47.22 Additional diagnosis detail: Cervical spondylosi s with radiculopa thy Neck pain 69665977 M54.2 [id number] MD RAHUL Caceres[address] [place] [address] 03/02/2024 13:11:54 03/02/2024 13:43:24 Cervical spondylosis 214412732 M47.22 Neck pain 85335763 M54.2 Cervical radiculopathy 76985582 M54.12 Health Concerns Section Related Observation LastModified by Organization Detai ls LastModified Time None Recorded Concern Status LastModified by Organization Details LastModified Time None Recorded Advance Directives Directive None Recorded Payers Encounter Date Sequence Insurance Name Policy Number Policy Knight Covered Member ID Knight Member ID Guarantor Name 01/10/2024 1 [place] [id number] Leslaw P Swistak [id number] Ira Swistak 01/22/2024 1 [place] [id number] Leslaw P Swistak [id number] Ira Swistak 03/02/2024 1 [place] [id number] Leslaw P Swistak [id number] Ira Swistak Notes Date Note Type Note Provider Name and Address Organization Details Recorded Time 01/10/2024 text/html Patient is a 58-year-old female who presents today with acute on chronic neck pain. She was told many years ago she had severe degenerative changes in the cervical spine. She previously failed extensive treatment including physical therapy and epidural injections in her neck. She eventually just lived with her symptoms. Last year her symptoms were worsened and she had an MRI ordered by her primary care provider, but denied. Symptoms started to flare 3 weeks ago. She was seen by an osteopathic provider and received a few visits of cervical manipulation. Unfortunately her symptoms got worse after treatment. Symptoms became severe a week ago and she was having dizziness, nausea and numbness in both upper extremities. She was admitted to [facility] on Saturday and had a CT and MRI of her brain. She also had a carotid ultrasound which was also normal. She was discharged on 01/07/2024 with no change in her medications. She had been taking gabapentin for her symptoms for the last 6 months. After discharge, she called her primary care provider but they could not get her in for 2 months. She did not want to go back to her osteopath. With her severe symptoms and no other complaints, she presents today for orthopedic urgent care evaluation. She continues to report neck pressure and tightness. She has numbness and tingling in both upper extremities, greatest in the third and fourth digits of her left hand. 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 Past medical history significant for hypertension and hypothyroidism TU APARICIO PA-C [address], [place], [address], [place] [facility] 01/10/2024 16:56:57 01/22/2024 text/html Patient returns today for follow-up of chronic neck pain with recent exacerbation. She was having severe pain and was given a prednisone taper and sent for an MRI of the cervical spine. Her pain has significantly decreased with the prednisone and she is very pleased with her progress. She still has constant numbness in her middle finger, but some intermittent vague symptoms throughout her hand. She presents today to discuss the MRI findings and further options. 01/10/2024 LOLA:Patient is a 58-year-old female who presents today with acute on chronic neck pain. She was told many years ago she had severe degenerative changes in the cervical spine. She previously failed extensive treatment including physical therapy and epidural injections in her neck. She eventually just lived with her symptoms. Last year her symptoms were worsened and she had an MRI ordered by her primary care provider, but denied. Symptoms started to flare 3 weeks ago. She was seen by an osteopathic provider and received a few visits of cervical manipulation. Unfortunately her symptoms got worse after treatment. Symptoms became severe a week ago and she was having dizziness, nausea and numbness in both upper extremities. She was admitted to [facility] on Saturday and had a CT and MRI of her brain. She also had a carotid ultrasound which was also normal. She was discharged on 01/07/2024 with no change in her medications. She had been taking gabapentin for her symptoms for the last 6 months. After discharge, she called her primary care provider but they could not get her in for 2 months. She did not want to go back to her osteopath. With her severe symptoms and no other complaints, she presents today for orthopedic urgent care evaluation. She continues to report neck pressure and tightness. She has numbness and tingling in both upper extremities, greatest in the third and fourth digits of her left hand. 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 Past medical history significant for hypertension and hypothyroidism TU APARICIO PA-C [address], [place], [address], [place] [facility] 01/22/2024 15:03:55 OBGyn Episode No OBEpisode recorded.
--- OUTSIDE RECORDS SUMMARY | 2025-01-02 07:27 | XMS_ITS | Clinical Summary ---
Author Organization [facility] Address [address] [place] [address] Care Team Providers Care Supervisor Nutritional Yeast Name Role Phone Dave Iyer Primary Care Provider [phone] Allergies Active Allergy Reactions Criticality Noted Date Comments Pravastatin 06/12/2022 Medications Medication Sig Dispensed Refills Start Date End Date Status atorvastatin (LIPITOR) tablet 20 mg Take 20 mg by mouth. 0 05/10/2016 Active ibuprofen 800 MG tablet Take 800 mg by mouth. 0 11/04/2013 Active levothyroxine (SYNTHROID) tablet 88 mcg Take 88 mcg by mouth daily. 0 05/28/2022 Active levothyroxine (SYNTHROID) tablet 50 mcg Take 1 tablet by mouth daily. 0 07/06/2014 Active metoprolol succinate (TOPROL-XL) 24 hr tablet 50 mg 0 06/04/2022 Active Pediatric Multivitamins-Fl (Multi Vit/Fl) 0.25 MG CHEW Chew 1 tablet by mouth daily. 0 Active pravastatin (PRAVACHOL) tablet 40 mg Take 1 tablet by mouth daily. 0 07/06/2014 Active rosuvastatin (CRESTOR) tablet 40 mg 0 06/10/2022 Active SUMAtriptan (IMITREX) 50 MG tablet TAKE 1 TABLET BY MOUTH TWICE DAILY NEEDED FOR MIGRAINE HEADACHE DO NOT EXCEED 4 DOSES PER 24 HOURS 0 05/18/2022 Active meloxicam (MOBIC) 15 MG tablet Take 1 tablet (15 mg total) by mouth daily. 30 tablet 0 06/12/2022 Active Family History Medical History Relation Name Comments Cancer Father Relation Name Status Comments Father Social History Tobacco Use Types Packs/Day Years Used Date Smoking Tobacco: Never Smokeless Tobacco: Never Alcohol Use Standard Drinks/Week Comments Not Currently 0 (1 standard drink = 0.6 oz pur e alcohol) Sex and Gender Information Value Date Recorded Sex Assigned at Female 05/31/2022 2:03 PM EDT Gender Identity Not on file Sexual Orientation Not on file Job Start Date Occupation Industry Not on file Not on file Not on file Last Filed Vital Signs Vital Sign Reading Time Taken Comments Blood Pressure - - Pulse - - Temperature - - Respiratory Rate - - Oxygen Saturation - - Inhaled Oxygen Concentration - - Weight 72.6 kg (160 lb) 06/12/2022 1:47 PM EDT Height 157.5 cm (5' 2 ) 06/12/2022 1:47 PM EDT Body Mass Index 29.26 06/12/2022 1:47 PM EDT Plan of Treatment Health Maintenance Due Date Last Done Comments Hepatitis C Screening 1964 COVID-19 Vaccine (#1) 02/16/1965 Depression Screening 1976 BMI Counseling 1982 Preventative Health Evaluation 1982 Cervical Cancer Screening (P ap Smear) 1985 Colon Cancer Screening (Colonoscopy) 2009 Breast Cancer Screening (Mammogram) 2014 Shingrix-Zoster Vaccine (1 of 2) 2014 DTap / Tdap / Td (2 - Td or Tdap) 03/04/2019 009 Influenza Vaccine (#1) 2024 RSV Adult > 60+ Yrs or Pregn ant (1 - 1-dose 75+ series) 2039 Hepatitis B Vaccines Aged Out No long er eligible based on patient's age to complete this topic Pneumococcal Vaccine Aged Out No long er eligible based on patient's age to complete this topic RSV Ped < 20 months Aged Out No longe r eligible based on patient's age to complete this topic Care Teams Supervisor Nutritional Yeast Relationship Specialty Start Date End Date Dave Iyer [address] [place], [place] [id number] PCP - General Family Medicine 06/12/22
--- OUTSIDE RECORDS SUMMARY | 2025-01-02 07:27 | XMS_ITS | Patient Health Record ---
Author Organization [facility] Address [address] [place] [address] Care Team Providers Care Qualitative Field Project Manager Name Role Phone MADELEINE AQUINO Primary Care Provider Fawad Tsang Unavailable [phone] Kalina Soliman Unavailable Unavailable Allergies Allergen (clinical drug ingredient) Drug/Non Drug Allergy documented on EMR Reaction Allergy Type Onset Date Status pravastatin Pravastatin Sodium Unknown Drug Allergy Active Reason For Referral No Information Medications Medication SIG (Take, Route, Frequency, Duration) Notes Start Date End Date Status SUMAtriptan Succinate Active Metoprolol Succinate ER Active Atorvastatin Calcium Active Aspirin 81 MG 1 tablet Orally Once a day 06/08/2015 Not-Taking Levothyroxine Sodium 25 MCG 1 tablet Orally Once a day 06/08/2015 Active Multi Vitamin/Minerals Orally Active Vitamin C Active Tylenol PRN Active Immunizations Vaccine Route Administration Date Status Comme nts Influenza Unknown 08/03/2020 Administered Problems Problem Type SNOMED Code ICD Code Onset Dates Problem Status W/U Status Risk Notes Problem Screening for malignant neoplasm of colon (505595568) Encounter for screening for malignant neoplasm of colon (Z12.11) Active confirmed Problem History of adenomatous polyp of colon (329462195) History of adenomatous polyp of colon (Z86.010) Active confirmed Problem Gastroesophageal reflux disease (049941031) GERD (gastroesophag eal reflux disease) (K21.9) Active confirmed Plan Of Treatment Pending Test Test Name Order Date LIVER PROFILE 02/10/2015 LIVER PROFILE 08/13/2014 LIVER PROFILE 01/09/2015 LIVER PROFILE 08/04/2014 LIVER PROFILE 02/25/2015 LIVER PROFILE 12/21/2014 LIPOPROTEIN FRACTIONATION (LIPID PANEL) 02/10/2015 IRON + IBC (FE) 12/21/2014 IRON + IBC (FE) 08/13/2014 FERRITIN 12/21/2014 FERRITIN 08/13/2014 CBC w DIFF 12/21/2014 CBC w DIFF 02/10/2015 PROTHROMBIN TIME (PT, INR) 01/09/2015 PROTHROMBIN TIME (PT, INR) 12/21/2014 PROTHROMBIN TIME (PT, INR) 02/10/2015 PARTIAL THROMBOPLASTIN TIME (PTT) 2014 HEPATITIS C ANTIBODY 01/09/2015 [id number] (A1A) 08/13/2014 [id number] (A1A) 12/21/2014 CERULOPLASMIN 12/21/2014 MITOCHONDRIAL AB 01/09/2015 PROTEIN ELECTROPHORESIS, SERUM 5 SMOOTH MUSCLE ANTIBODIES 01/09/2015 US LIVER BIOPSY CORE GUIDE 02/10/2015 FLUOR. ANTINUCLEAR AB SCREEN (STEFANI) 12/26 Pathology 11/23/2020 Future Test Test Name Order Date COLONOSCOPY 06/08/2015 COLONOSCOPY 10/19/2020 Insurance Providers Payer Name Payer Address Payer Phone Subscriber Number Group Number Insured Name Patient Relationship to Insured Coverage Start Date Coverage End Date [facility] [address] [place], [place] [id number] MAYLIN GUERRERO Self - patient is the insured Medical (General) History Medical History History ICD Code Denies MD,DM,CVA,Lung disease,renal dise ase Elevated Cholesterol--stoppe d her pravastatin in 07/2014 when her LFT's were high Kidney stone on right--s/p ESWL on 08/11 Hypothyroidism She was hospitalized in 2013 for abdominal pain and elevated LFTs, but a workup for that was negative in regard to her gallbladder and biliary tract--- while in the hospital her AST was over 250 and the ALT was over 500, but she never had any signs of jaundice. She had a neg. MRCP except for gallbladder sludge. Other w/u has included normal Iron studies, negative mitochondrial antibody, neg. ALIYAH, neg. Hepatitis B and C studies, slightly elevated smooth muscle antibody at 74, and a normal lwhdy-7-rqresbgseml level.---LFT's were normal on 06/06/15 Migraine headaches GERD-EGD in 06/2015--small hi atal hernia, no esophagitis nor Emmanuel's esophagus Screening colonoscopy in 06/29 015 with removal of small tubular adenomas from the cecum and some diverticulosis Surgical History Surgery Date(Month/Year)
--- OUTSIDE RECORDS SUMMARY | 2025-01-02 07:27 | XMS_ITS | Clinical Summary ---
Author Organization [employer] Address [address] [place] [address] 7[address] [place] [address] Care Team Providers Care Supervisor Television Chassis Repair Name Role Phone Colt Hartley MD Primary Care Provider + [phone] Allergies Active Allergy Reactions Criticality Noted Date Comments Pravastatin 06/12/2022 Other reaction(s): Unknown Medications gabapentin (Neurontin) 100 MG capsuleIndications :Cervical radiculitis TAKE 2 CAPSULES BY MOUTH EVERY NIGHT AT BEDTIME 180 capsule 11 12/05/19 24 Active levothyroxine (Synthroid, Levoxyl) 100 MCG tabletIndications: Hypothyroidism, unspecified type Take 1 tablet (100 mcg) by mouth in the morning. 90 tablet 12/05/19 24 Active omeprazole (PriLOSEC) [address] capsuleIndications :Gastroesophageal reflux disease without esophagitis Take 1 capsule (20 mg) by mouth in the morning. 90 capsule 12/05/19 24 Active rosuvastatin (Crestor) 40 MG tabletIndications: Hyperlipidemia, unspecified hyperlipidemia type Take 1 tablet (40 mg) by mouth in the morning. 90 tablet 12/05/19 24 Active SUMAtriptan (Imitrex) 50 MG tabletIndications: Migraine without status migrainosus, not intractable, unspecified migraine type Take 1 tablet (50 mg) by mouth 1 (one) time if needed for migraine for up to 1 dose. 1 tablet 12/05/19 24 Active topiramate (Topamax) 25 MG tablet Take 25 mg by mouth at bedtime. 01/07/20 24 Active metoprolol succinate XL (Toprol-XL) 50 MG 24 hr tabletIndications: Migraine without status migrainosus, not intractable, unspecified migraine type TAKE 1 TABLET(50 MG) BY MOUTH IN THE MORNING 90 tablet 3 12/11/19 25 Active metoprolol succinate XL (Toprol-XL) 50 MG 24 hr tabletIndications: Migraine without status migrainosus, not intractable, unspecified migraine type Take 1 tablet (50 mg) by mouth in the morning. 90 tablet 11 12/05/19 24 025 Discontinued Encounters Date Type Department Care Team Description 12/26/2024 Orders Only [address] [phone] Colt Hartley MD Other migraine without status migrainosus, not intractable (Primary Dx); Hypercholesteremia; Hypothyroidism, unspecified type 12/11/[address] [phone] Colt Hartley MD Migraine without status migrainosus, not intractable, unspecified migraine type 11/26/[address] [phone] Colt Hartley MD 10/13/2024 Orders Only [address] [phone] Provider, Not In System from Last 3 Months Social History Tobacco Use Types Packs/Day Years Used Date Smoking Tobacco: Never Passive Smoke Exposure: Past Smokeless Tobacco: Never Tobacco Cessation:Counseling Given: Not Answered Alcohol Use Standard Drinks/Week Comments Not Currently [...] the past 12 months, has t he [employer], [employer], oil or water company threatened to shut off services in your home? No 12/04/2023 Depression Answer Date Recorded Patient Health Questionnaire-2 Score 0 12/04/2023 Comments Unknown Sex and Gender Information Value Date Recorded Sex Assigned at Female 12/03/2023 10:27 AM EST Legal Sex Female 9:55 AM EST Gender Identity Female 12/03/2023 10:27 AM EST Sexual Orientation Straight 12/03/2023 10 :27 AM EST Last Filed Vital Signs Vital Sign Reading Time Taken Comments Blood Pressure 130/80 04/13/2024 7:47 AM EDT Pulse 75 04/13/2024 7:47 AM EDT Temperature 36.4 ??C (97.6 ??F) 04/13/2024 7:47 AM ED T Respiratory Rate - - Oxygen Saturation 99% 04/13/2024 7:47 AM EDT Inhaled Oxygen Concentration - - Weight 70.8 kg (156 lb) 04/13/2024 7:47 AM EDT Height 154.9 cm (5' 1 ) 12/04/2023 11:24 AM EST Body Mass Index 29.48 12/04/2023 11:24 AM EST Plan of Treatment Upcoming Encounters Date Type Department Care Team (Late Contact Info) Description 01/04/2025 9:00 AM EDT Office Visit [address] [phone] Colt Hartley MD [address] [place] [phone] Health Maintenance Due Date Last Done Comments CT Colonography 1964 FIT DNA/Cologuard 1964 FIT 1964 FOBT 1964 HIV Screening 1964 Sigmoidoscopy 1964 Hepatitis C Screening 1982 Mammogram 2004 Pneumococcal Vaccine: 50+ Years (1 of 1 - PCV) 2014 Zoster Vaccines (1 of 2) 2014 DTaP/Tdap/Td Vaccines (2 - T d or Tdap) 03/04/2019 03/04/2009 COVID-19 Vaccine (2023-2 5 season) 2024 10/07/2021, 02/28/2021, 02/07/2021 Influenza Vaccine (#1) 2024 , 08/03/2020, 06/28/2017 Depression Screening 12/04/2024 12/04/2023, 12/04/2023 SDOH Screening 12/04/2024 12/04/2023 Alcohol/Substance Use Screening 01/21/2025 01/22/2024 Tobacco Screening 04/13/2025 04/13/2024 Colonoscopy 11/23/2025 11/23/2020 Colorectal Cancer Screening 11/23/2025 Cervical Cancer Screening 05/14/2027 HPV/Cotest 05/14/2027 Pap Smear 05/14/2027 05/14/2022 Lipid Panel 01/03/2029 01/04/2024 RSV Patients and Patients Aged 60 years or older (1 - 1-dose 75+ series) 2039 HIB Vaccines Aged Out No longer eligi ble based on patient's age to complete this topic HPV Vaccines Aged Out No longer eligi ble based on patient's age to complete this topic Hepatitis A Vaccines Aged Out No long er eligible based on patient's age to complete this topic Hepatitis B Vaccines Aged Out No long er eligible based on patient's age to complete this topic IPV Vaccines Aged Out No longer eligi ble based on patient's age to complete this topic Meningococcal Vaccine Aged Out No mitra micheal eligible based on patient's age to complete this topic RSV under 20 months Aged Out No longe r eligible based on patient's age to complete this topic Rotavirus Vaccines Aged Out No longer eligible based on patient's age to complete this topic Procedures Procedure Name Priority Date/Time Associated Diagnosis Comments AMB REFERRAL TO NEUROSURGERY Routine 12/01/2024 Neck pain MISCELLANEOUS LAB TEST Routine 10/06/2024 12:33 PM EST LIPID PANEL WITH REFLEX TO DIRECT LDL Routine 01/04/2024 7:48 AM EST Hyperlipidemia, unspecified hyperlipidemia type PAP/HPV Routine 05/14/2022 1:01 PM EDT COLONOSCOPY Routine 11/23/2020 12:59 PM EST from Last 3 Months or Most Recently Relevant to Health Maintenance Results * Referral to Neurosurgery (12/01/2024) Colt Hartley MD OUTPATIENT REFERRAL ORDERABL ES Edited Result - Final * - Miscellaneous Test (10/06/2024 12:33 PM EST) Not In System Provider LAB BLOOD ORDERABLES Tonia l Result * Lipid Panel with Reflex to Direct LDL (01/04/2024 7:48 AM EST) Cholesterol, Total 162 <200 mg/dL [facility] HDL Cholesterol 59 > OR = 50 mg/dL [email or web address] Triglycerides 97 <150 mg/dL [email or web address] LDL Cholesterol 84 mg/dL [facility] t [employer] [place] [employer] Comment: Reference range: <100 Desirable range <100 mg/dL for primary prevention; ?? <70 mg/dL for patients with CHD or diabetic patients with > or = 2 CHD risk factors. LDL-C is now calculated using the Raisa calculation, which is a validated novel method providing better accuracy than the Friedewald equation in the estimation of LDL-C. Felipe OSMAN et al. SONYA. 2013;310(19): 5597-7395 (http://education.[employer]Believe.in/faq/PHT945) Chol/HDLC Ratio 2.7 <5.0 (calc) [employer] [place] [employer] Non-HDL Cholesterol 103 <130 mg/dL [employer] [place] [employer] Comment: For patients with diabetes plus 1 major ASCVD risk factor, treating to a non-HDL-C goal of <100 mg/dL (LDL-C of <70 mg/dL) is considered a therapeutic option. Blood 01/04/2024 7:48 AM EST 01/04/2024 7:48 AM EST Narrative [facility] - 01/05/2024 5:00 AM EDT FASTING:YES FASTING: YES us Colt Hartley MD LAB BLOOD ORDERABLES Final R esult [facility] [address] [place] [address], [place] [address] [employer] [place] [employer] [address] [place] [address] * HM PAP/HPV (05/14/2022 1:01 PM EDT) us Not In System Provider HEALTH MAINTENANCE Final Result * Hm Colonoscopy (11/23/2020 12:59 PM EST) us Not In System Provider HEALTH MAINTENANCE Final Result from Last 3 Months or Most Recently Relevant to Health Maintenance Insurance BS PPO Care Teams Supervisor Television Chassis Repair Relationship Specialty Start Date End Date Colt Hartley MD [address] [place] [phone] PCP - General Internal Medicine 12/25/23
--- OUTSIDE RECORDS SUMMARY | 2025-01-02 07:27 | XMS_ITS | Encounter Summary ---
Author Organization [employer] Address [address] [facility] 7 [place] [address] Care Team Providers Care Security Guards Dispatcher Name Role Phone Colt Hartley MD Primary Care Provider + [phone] Encounter Details Date Type Department Care Team (Late st Contact Info) Description 03/20/2024 Abstract [facility] [address] [place] [phone] Colt Hartley MD [address] [place] [address] [phone] Social History Tobacco Use Types Packs/Day Years [...] Description 01/04/2025 9:00 AM EDT Office Visit [facility] [address] [place] [phone] Colt Hartley MD [address] [place] [phone] documented as of this encounter Visit Diagnoses Not on filedocumented in this encounter Care Teams Security Guards Dispatcher Relationship Specialty Start Date End Date Colt Hartley MD [address] [place] [address] PCP - General Internal Medicine 12/25/23 documented as of this encounter
--- OUTSIDE RECORDS SUMMARY | 2025-01-02 07:27 | XMS_ITS | Encounter Summary ---
Author Organization [employer] Address [address] [facility] 7t [place] [address] Care Team Providers Care Heel Cementer Name Role Phone Colt Hartley MD Primary Care Provider + [phone] Encounter Details Date Type Department Care Team ([facility] st Contact Info) Description 10/13/2024 [facility] [address] [place] [address] Provider, Not In System Social History Tobacco [...] Description 01/04/2025 9:00 AM EDT Office Visit [facility] [address] [place] [phone] Colt Hartley MD [address] [place] [address] documented as of this encounter Procedures Procedure Name Priority Date/Time Associated Diagnosis Comments MISCELLANEOUS LAB TEST Routine 10/06/2024 12:33 PM EST documented in this encounter Results * - Miscellaneous Test (10/06/2024 12:33 PM EST) us Not In System Provider LAB BLOOD ORDERABLES Tonia l Result documented in this encounter Visit Diagnoses Not on filedocumented in this encounter Care Teams Heel Cementer Relationship Specialty Start Date End Date Colt Hartley MD [address] [place] [phone] PCP - General Internal Medicine 12/25/23 documented as of this encounter
--- OUTSIDE RECORDS SUMMARY | 2025-01-02 07:27 | XMS_ITS | Encounter Summary ---
Author Organization [employer] Address [address] [facility] 7 [place] [address] Care Team Providers Care Gauge Checker Name Role Phone Colt Hartley MD Primary Care Provider + [phone] Encounter Details Date Type Department Care Team ([facility] st Contact Info) Description 03/09/[address] [phone] Colt Hartley MD [address] [place] [phone] Social History Tobacco Use Types Packs/Day Years [...] encounter Miscellaneous Notes * Telephone Encounter - Cleo Campbell - 04/01/2024 3:55 PM EDT Ordered processed * Telephone Encounter - Karen Stallings - 03/09/2024 11:38 AM EDT Pts daughter called, states she would like a referral to Neurosurgeon, Dr. Fawad Gillespie in [place]. Also Pts daughter wanted me to note that she completed Physical therapy at [facility] . documented in this encounter Plan of Treatment Upcoming Encounters Date Type Department Care Team (Late st Contact Info) Description 01/04/2025 9:00 AM EDT Office Visit [facility] [address] [place] [phone] Colt Hartley MD [address] [place] [address] documented as of this encounter Visit Diagnoses Not on filedocumented in this encounter Care Teams Gauge Checker Relationship Specialty Start Date End Date Colt Hartley MD [address] [place] [phone] PCP - General Internal Medicine 12/25/23 documented as of this encounter
--- OUTSIDE RECORDS SUMMARY | 2025-01-02 07:28 | XMS_ITS ---
Author Name [facility] Organization Unknown History of Medication Use Medication Directions Dispensed Refills Start Date End Date Stat us metoprolol succinate ER 50 mg tablet,extended release 24 hr TAKE 1 TABLET BY MOUTH DAILY active levothyroxine 100 mcg tablet TAKE 1 TABLET BY MOUTH DAILY active prednisone 10 mg tablet active BinaxNOW COVID-19 Ag Self Test kit FOLLOW PACKAGE DIRECTIONS 4 completed rosuvastatin 40 mg tablet TAKE 1 TABLET BY MOUTH DAILY active levothyroxine 88 mcg tablet TAKE 1 TABLET BY MOUTH DAILY 4 completed methylprednisolone 4 mg tablet TAKE 2 TABLETS BY MOUTH TWICE DAILY 4 completed Allergies Allergen Reaction Severity Comment Documented Date Source Statu s PRAVASTATIN [facility] Problems Problem Status Onset Date Problem Type Date of Resolution Source Neck pain active En[facility]DiagnosisAct [facility] Cervical spondylolysis active EncounterDiagnosisAct [facility] Cervical spondylosis active 2024-01-10 ProblemAct [facility] Cervical radiculopathy active 2024-03-02 ProblemAct [facility] Impairment of balance active 2024-01-10 ProblemAct [facility] Neck pain active 2024-01-[address] [address] Cervical radiculopathy active [facility]counterDiagnosisAct [facility]
--- OUTSIDE RECORDS SUMMARY | 2025-01-02 07:28 | XMS_ITS | Encounter Summary ---
Author Organization [facility] Address [address] [place] [address] Care Team Providers Care Brands Editor Name Role Phone Unavailable Primary Care Provider Unavailabl e Encounter Details Date Type Department Care Team (Latest Contact Info) Description 02/01/2021 Lab Requisition [facility] COVID [facility] Through [address] [place] [address] [address] [place] [phone] Tony Knight MD [address] [place], [place] [phone] Encounter for laboratory testing for COVID-19 virus Social History Tobacco Use Types Packs/Day Years Used Date Smoking Tobacco: Never Assessed Sex and Gender Information Value Date Recorded Sex Assigned at Not on file Gender Identity Not on file Sexual Orientation Not on file documented as of this encounter Plan of Treatment Not on file documented as of this encounter Procedures Procedure Name Priority Date/Time Associated Diagnosis Comments COVID-19 (SARS-COV-2) JOSÉ MIGUEL Routine 02/01/2021 1:14 PM EDT Encounter for laboratory testing for COVID-19 virus [ICD-10-CM] documented in this encounter Results * COVID-19 (SARS-CoV-2), JOSÉ MIGUEL (In-House) (02/01/2021 1:14 PM EDT) SARS CoV 2 Not Detected Not Detected 02/01/2021 7:02 PM EDT [facility] Comment: Negative results do not preclude SARS-CoV-2 (COVID-19)infection and should not be used as the sole basis for treatment or other patient management decisions. The SARS-CoV-2 (Covid-19) Nucleic Acid Amplification Assay is limited to laboratories certified under the Clinical Laboratory Improvement Amendments of 1988 (CLIA), 42 U.S.C. 263a, to perform high complexity tests. Nucleic acid amplication tests include RT-PCR and TMA. This assay has not been FDA cleared or approved, however, this assay has been authorized by the Food and Drug Administration (FDA) under an Emergency Use Authorization (EUA). ??Validation was completed and performance characteristics established by [facility] as per the FDA and CLIA requirement for this EUA. The Aptima SARS-CoV-2 assay Letter of Authorization, along with the authorized Fact Sheet for Healthcare Providers, the authorized Fact Sheet for Patients, and authorized labeling are available on the FDA website: https://www.fda.gov/medical-devices/jlzikknal-obocixtrnj-fuftfet-devices/emergen - q-qpwwmvynohgpfr-uefqtgz-devices. Performed at [facility], [place], [place] ??[place] License 0385 ??CLIA [id number] Source Nasopharyngeal 02/01/2021 7:02 PM EDT [facility] Comment:Performed at [place], [place] license No. [id number] CLIA No. [id number] Microbiology Nasopharyngeal swab / Unknown 02/01/2021 1:14 PM EDT 02/01/2021 1:14 PM EDT Tony Knight MD MICROBIOLOGY - GENER AL ORDERABLES [facility] [address] [place] [address] documented in this encounter Visit Diagnoses Diagnosis Encounter for laboratory testing for COVID-19 virus documented in this encounter
[2025-01-02 08:05] LABS: MANUAL DIFF FLAG NO
[2025-01-02 08:29] LABS: Basophils Absolute Auto 0.1 X10*3/uL (0.0-0.2); Eosinophils Absolute Auto 0.4 X10*3/uL (0.0-0.4); Eosinophils Percent Auto 6.5 % (0-4); Hematocrit 38.6 % (37.0-47.0); Hemoglobin 12.9 g/dl (12.0-16.0); Imm Gran Abs Auto 0.02 X10*3/uL (0.00-0.03); Imm Gran Pct Auto 0.3 % (0.0-0.4); Lymphocytes Absolute Auto 2.3 X10*3/uL (1.2-4.9); Lymphocytes Percent Auto 37.3 % (20-40); Mean Corpuscular HGB Conc 33.4 g/dl (31.0-35.0); Mean Corpuscular Hemoglobin 31.3 pg (27.0-33.0); Mean Corpuscular Volume 93.7 fL (80.0-98.0); Mean Platelet Volume 10.8 fL (9.4-12.3); Monocytes Absolute Auto 0.7 X10*3/uL (0.1-1.2); Monocytes Percent Auto 10.7 % (2-11); Neutrophils Absolute Auto 2.7 x10*3/uL (2.0-8.3); Neutrophils Percent Auto 44.2 % (45-73); Platelet Count 294 X10*3/uL (160-400); Red Blood Count 4.12 X10*6/uL (4.20-5.50); Red Cell Distribution Width 13.1 % (11.0-16.0); White Blood Count 6.1 X10*3/uL (4.8-10.8)
[2025-01-02 09:15] LABS: Alanine Aminotransferase 34 U/L (0-31); Alkaline Phosphatase 119 U/L (39-117); Anion Gap 12 (12-20); Aspartate Amino Transferase 28 U/L (5-31); Bilirubin Total 0.4 mg/dL (0.0-1.0); Blood Urea Nitrogen 12 mg/dL (9-16); Calcium 9.5 mg/dL (8.4-10.2); Carbon Dioxide 24 mmol/L (22-29); Chloride 110 mmol/L (96-108); Cholesterol 180 mg/dL (<200); Estimated Glomerular Filt Rate > 60; Glucose Random 99 mg/dL (60-115); HDL Cholesterol 55 mg/dL (>40); LDL Cholesterol Calculated 94 mg/dL (<100); Potassium 4.1 mmol/L (3.3-5.1); Sodium 142 mmol/L (135-145); Total Protein 7.6 g/dL (6.5-8.0); Triglycerides 158 mg/dL (<150)
[2025-01-02 09:30] LABS: TSH reflex Free T4 0.47 uIU/mL (0.32-4.0)
[2025-01-02 10:11] LABS: Folate 14.5 ng/mL (> or = 4.0); Vitamin B12 954 pg/mL (200-900)
[2025-01-02 11:02] LABS: Reflex LDLD? No
== END 2025-01-02 07:26 | disposition home or self-care (01) ==
LOC: HO.LAB 07:25
PROVIDERS: PCP Internal Medicine; Visit Provider Internal Medicine
DX: G43.809 Other migraine, not intractable, without status migrainosus (principal); E78.00 Pure hypercholesterolemia, unspecified; E03.9 Hypothyroidism, unspecified
CPT/HCPCS: 36415; 80053; 80061; 82607; 82746; 84443; 85025

== ENCOUNTER 2025-07-30 15:43 | Outpatient (REF) | payer BC, SELFPAY ==
--- OUTSIDE RECORDS SUMMARY | 2025-07-30 15:45 | XMS_ITS | Patient Health Record ---
Author Organization [facility] Address [address] [place] [address] Care Team Providers Care Production Reproduction Manager Name Role Phone Naeem RODRIGUEZ, [phone] [place] Primary [facility] Pro vider Unavailable Flaco Lawrence Unavailable [phone] Reason For Referral No Information Medications Medication SIG (Take, Route, Fr equency, Duration) Notes Start Date End Date Status Lipitor Active Levothyroxine Sodium Active Social History Tobacco Use: Social History Observation Description Date Details (start date - stop date) Never Smoker NA - NA Tobacco Use/Smoking Question Answer Notes Are you a: nonsmoker Alcohol Screen Question Answer Notes Did you have a drink containing alcohol in the p ast year? No Points 0 Interpretation Negative Tobacco use other than smoking: Question Answer Notes Are you an other tobacco user? No Problems Problem Type SNOMED Code ICD Code Onset Dates Problem Status W/U Status Risk Notes Problem Plantar fascial fibromatosis (83969971) Plantar fascial fibromatosis (M72.2) Active confirmed Plan Of Treatment Pending Test Test Name Order Date ,[id number] TENDON SHEATH/LIGAMENT 1 12/12/2016 Insurance Providers Payer Name Payer Address Payer Phone Subscriber Number Group Number Insured Name Patient Relationship to Insured Coverage Start Date Coverage End Date [employer] [address] [place] [address] [phone] [id number] Ira Mari Self - patient is the insured Medical (General) History Medical History History ICD Code Arthritis Headaches Migraines Thyroid disorder Cholesterol
--- OUTSIDE RECORDS SUMMARY | 2025-07-30 15:45 | XMS_ITS | Clinical Summary ---
Author Organization [facility] Address [address] [place] [address] Care Team Providers Care Stationary Boiler Fireman Name Role Phone Dave Iyer Primary Care Provider [phone] Allergies Active Allergy Reactions Criticality Noted Date [...] or Tdap) 03/04/2019 009 Influenza Vaccine (#1) 2025 RSV Adult > 60+ Yrs or Pregn [...] age to complete this topic Care Teams Stationary Boiler Fireman Relationship Specialty Start Date End Date Dave Iyer [address] [place], [place] [phone] PCP - General Family Medicine 06/12/22
--- OUTSIDE RECORDS SUMMARY | 2025-07-30 15:45 | XMS_ITS | Patient Health Record ---
Author Organization [facility] Address [address] [place] [address] Care Team Providers Care Soil Field Technician Name Role Phone MADELEINE AQUINO Primary Care Provider Fawad Tsang Unavailable [phone] Kalina Soliman Unavailable Unavailable Allergies Allergen (clinical [...] Problem Screening for malignant neoplasm of colon (569243868) Encounter for screening for malignant neoplasm of colon (Z12.11) Active confirmed Problem History of adenomatous polyp of colon (045205892) History of adenomatous polyp of colon (Z86.010) Active confirmed Problem Gastroesophageal reflux disease (352560928) GERD (gastroesophag eal reflux disease) (K21.9) Active [...] TIME (PTT) 2014 HEPATITIS C ANTIBODY 01/09/2015 KIGDS-2-[id number] (A1A) 08/13/2014 GZPQH-6-FAJZZFCRMYL (A1A) 12/21/2014 CERULOPLASMIN 12/21/2014 MITOCHONDRIAL AB 01/09/2015 PROTEIN ELECTROPHORESIS, SERUM 5 SMOOTH MUSCLE ANTIBODIES 01/09/2015 US LIVER BIOPSY CORE GUIDE 02/10/2015 FLUOR. ANTINUCLEAR AB SCREEN (STEFANI) 12/26 Pathology 11/23/2020 Future Test Test Name Order Date COLONOSCOPY 06/08/2015 COLONOSCOPY 10/19/2020 Insurance Providers Payer Name Payer Address Payer Phone Subscriber Number Group Number Insured Name Patient Relationship to Insured Coverage Start Date Coverage End Date [facility] [address] [place], [place] [phone] [id number] MAYLIN GUERRERO Self - patient is the insured Medical (General) History Medical History History ICD Code Denies NC,DM,CVA,Lung disease,renal dise ase Elevated Cholesterol--stoppe d her [...] muscle antibody at 74, and a normal bjlre-7-rvylsunrwrv level.---LFT's were normal on 06/06/15 Migraine headaches GERD-EGD in 06/2015--small hi atal hernia, no esophagitis nor Emmanuel's esophagus Screening colonoscopy in 06/29 015 with removal of small tubular adenomas from the cecum and some diverticulosis Surgical History Surgery Date(Month/Year)
--- OUTSIDE RECORDS SUMMARY | 2025-07-30 15:45 | XMS_ITS | Clinical Summary ---
Author Organization [employer] Address [address] [facility] 7t [place] [address] Care Team Providers Care Hydrochloric Area Supervisor Name Role Phone Colt Hartley MD Primary Care Provider Allergies Active Allergy Reactions Criticality Noted Date Comments Pravastatin 06/12/2022 Other reaction(s): Unknown Medications gabapentin (Neurontin) 100 MG capsuleIndications: Cervical radiculitis TAKE 2 CAPSULES BY MOUTH EVERY NIGHT AT BEDTIME 180 capsule 11 4 Active omeprazole (PriLOSEC) [address] capsuleIndications: Gastroesophageal reflux disease without esophagitis Take 1 capsule (20 mg) by mouth in the morning. 90 capsule 11 4 Active rosuvastatin (Crestor) 40 MG tabletIndications:H yperlipidemia, unspecified hyperlipidemia type Take 1 tablet (40 mg) by mouth in the morning. 90 tablet 11 4 Active SUMAtriptan (Imitrex) 50 MG tabletIndications:M igraine without status migrainosus, not intractable, unspecified migraine type Take 1 tablet (50 mg) by mouth 1 (one) time if needed for migraine for up to 1 dose. 1 tablet 4 Active topiramate (Topamax) 25 MG tablet Take 25 mg by mouth at bedtime. 4 Active metoprolol succinate XL (Toprol-XL) 50 MG 24 hr tabletIndications:M igraine without status migrainosus, not intractable, unspecified migraine type TAKE 1 TABLET(50 MG) BY MOUTH IN THE MORNING 90 tablet 3 5 Active levothyroxine (Synthroid, Levoxyl) 100 MCG tabletIndications:H ypothyroidism, unspecified type TAKE 1 TABLET(100 MCG) BY MOUTH IN THE MORNING 90 tablet 3 5 Active Social History Tobacco Use Types Packs/Day Years [...] Sign Reading Time Taken Comments Blood Pressure 119/79 01/04/2025 9:03 AM EDT Pulse 79 01/04/2025 9:03 AM EDT Temperature 36.4 C (97.6 F) 01/04/2025 9:03 AM EDT Respiratory Rate - - Oxygen Saturation 99% 01/04/2025 9:03 AM EDT Inhaled Oxygen Concentration - - Weight 73.5 kg (162 lb) 01/04/2025 9:03 AM EDT Height 154.9 cm (5' 1 ) 12/04/2023 11:24 AM EST Body Mass Index 30.61 12/04/2023 11:24 AM EST Plan of Treatment Health Maintenance Due Date Last Done Comments CT Colonography 1964 FIT DNA/Cologuard 1964 FIT 1964 FOBT 1964 HIV Screening 1964 Sigmoidoscopy 1964 Disability Screening 1964 Alcohol/Substance Use Screening 1976 Hepatitis C Screening 1982 Mammogram 2004 Pneumococcal Vaccine: 50+ Years (1 of 1 - PCV) 2014 Zoster Vaccines (1 of 2) 2014 DTaP/Tdap/Td Vaccines (2 - T d or Tdap) 03/04/2019 03/04/2009 Depression Screening 12/04/2024 12/04/2023, 12/04/2023 SDOH Screening 12/04/2024 12/04/2023 COVID-19 Vaccine (2024-2 6 season) 2025 10/07/2021, 02/28/2021, 02/07/2021 Influenza Vaccine (#1) 2025 , 08/03/2020, 06/28/2017 Colonoscopy 11/23/2025 11/23/2020 Colorectal Cancer Screening 11/23/2025 Tobacco Screening 01/04/2026 01/04/2025 Cervical Cancer Screening 05/14/2027 HPV/Cotest 05/14/2027 Pap [...] patient's age to complete this topic Meningococcal B Vaccine Aged Out No l onger eligible based on patient's age to complete [...] Procedure Name Priority Date/Time Associated Diagnosis Comments LIPID PANEL WITH REFLEX TO DIRECT LDL Routine 01/04/2024 7:48 AM EST Hyperlipidemia, unspecified hyperlipidemia type PAP/HPV Routine 05/14/2022 1:01 PM EDT COLONOSCOPY Routine 11/23/2020 12:59 PM EST from Last 3 Months or Most Recently Relevant to Health Maintenance Results * Lipid Panel with Reflex to Direct LDL (01/04/2024 7:48 AM EST) Cholesterol, Total 162 <200 mg/dL [facility] HDL Cholesterol 59 > OR = 50 mg/dL [facility] Triglycerides 97 <150 mg/dL [facility] LDL Cholesterol 84 mg/dL Ques t [facility] Comment: Reference range: <100 Desirable range <100 mg/dL for primary prevention; <70 mg/dL for patients with CHD or diabetic patients with > or = 2 CHD risk factors. LDL-C is now calculated using the Raisa calculation, which is a validated novel method providing better accuracy than the Friedewald equation in the estimation of LDL-C. Felipe SS et al. SONYA. 2013;310(36): 2751-3340 (http://education.[employer]/faq/BCO772) Chol/HDLC Ratio 2.7 <5.0 (calc) [facility] Non-HDL Cholesterol 103 <130 mg/dL [facility] Comment: For patients with diabetes plus 1 major ASCVD risk factor, treating to a non-HDL-C goal of <100 mg/dL (LDL-C of <70 mg/dL) is considered a therapeutic option. Blood 01/04/2024 7:48 AM EST 01/04/2024 7:48 AM EST Narrative [facility] - 01/05/2024 5:00 AM EDT FASTING:YES FASTING: YES us Colt Hartley MD LAB BLOOD ORDERABLES Final R esult [facility] [address], [place] [address] [facility] [address] [place] [address] * HM PAP/HPV (05/14/2022 1:01 PM EDT) us Not In System Provider HEALTH MAINTENANCE Final Result * Hm Colonoscopy (11/23/2020 12:59 PM EST) us Not In System Provider HEALTH MAINTENANCE Final Result from Last 3 Months or Most Recently Relevant to Health Maintenance Insurance [facility] PPO Care Teams Hydrochloric Area Supervisor Relationship Specialty Start Date End Date Colt Hartley MD [address] [place] [id number] PCP - General Internal Medicine 12/25/23
--- OUTSIDE RECORDS SUMMARY | 2025-07-30 15:45 | XMS_ITS | Clinical Summary ---
Author Organization [facility] Address [address] [place] [address] Care Team Providers Care Biomedical Specialist Name Role Phone Unavailable Primary Care Provider Unavailabl e Social History Tobacco Use Types Packs/Day Years Used Date Smoking Tobacco: Never Assessed Comments Unknown Sex and Gender Information Value Date Recorded Sex Assigned at Not on file Legal Sex Female 1:13 PM EDT Gender Identity Not on file Sexual Orientation Not on file Plan of Treatment Health Maintenance Due Date Last Done Comments Hepatitis C Virus Screening 1964 HIV Screening 1977 DTaP/Tdap/Td Vaccines (1 - Tdap) 1983 Pneumococcal Vaccines 50+ (1 of 1 - PCV) 2014 Zoster (Shingles) Vaccine (1 of 2) 2014 COVID-19 Vaccine ( - 2023-2 5 season) 2025 RSV Vaccine 60 years and old er and Patients (1 - 1-dose 75+ series) 2039 Hepatitis B Vaccines Aged Out No long er eligible based on patient's age to complete this topic
--- OUTSIDE RECORDS SUMMARY | 2025-07-30 15:45 | XMS_ITS | Encounter Summary ---
Author Organization [employer] [facility] Address [address] [place] [address] [place] [address] Care Team Providers Care Manager Control Name Role Phone Colt Hartley MD Primary Care Provider + [phone] Encounter Details Date Type Department Care Team ([facility] st Contact Info) Description 03/20/2024 Abstract [facility] [address] [place] [phone] Colt Hartley MD [address] [place], [place] [phone] Social History Tobacco Use Types Packs/Day Years [...] on file documented as of this encounter Visit Diagnoses Not on filedocumented in this encounter Care Teams Manager Control Relationship Specialty Start Date End Date Colt Hartley MD [address] [place] [address] PCP - General Internal Medicine 12/25/23 documented as of this encounter
--- OUTSIDE RECORDS SUMMARY | 2025-07-30 15:45 | XMS_ITS ---
Author Name [facility] Organization Unknown History of Medication Use Medication Directions Dispensed Refills Start Date End Date Stat us prednisone 10 mg tablet Take 4 tablet(s) EVERY DAY by oral route for 2 days, then decrease by 1 pill every 2 days until gone (4,4,3,3,2,2,1, 1) 01/10/2024 active BinaxNOW COVID-19 Ag Self Test kit FOLLOW PACKAGE DIRECTIONS 4 completed levothyroxine 88 mcg tablet TAKE 1 TABLET BY MOUTH DAILY 4 completed methylprednisolone 4 mg tablet TAKE 2 TABLETS BY MOUTH TWICE DAILY 4 completed prednisone 10 mg tablet active gabapentin 100 mg capsule TAKE 2 CAPSULES BY MOUTH EVERY NIGHT AT BEDTIME active levothyroxine 100 mcg tablet TAKE 1 TABLET BY MOUTH DAILY active metoprolol succinate ER 50 mg tablet,extended release 24 hr TAKE 1 TABLET BY MOUTH DAILY active omeprazole 20 mg capsule,delayed release TAKE 1 CAPSULE BY MOUTH ONCE A DAY active rosuvastatin 40 mg tablet TAKE 1 TABLET BY MOUTH DAILY active sumatriptan 50 mg tablet active topiramate 25 mg tablet TAKE 1 TABLET BY MOUTH AT BEDTIME active Allergies Allergen Reaction Severity Comment Documented Date Source Statu s PRAVASTATIN [facility] Problems Problem Status Onset Date Problem Type Date of Resolution Source Cervical spondylosis active 2024-01-10 ProblemAct [facility] Impairment of balance active 2024-01-10 ProblemAct [facility] Neck pain active 2024-01-[address] [facility] [address] Cervical [facility] Cervical spondylolysis active EncounterDiagnosisAct [facility] Cervical radiculopathy active 2024-03-02 ProblemAct [facility] Neck pain active EncounterDiagnosisAct [facility] Encounters Encounter Type Encounter Reason Primary Diagnosis Location Date Ambulatory [facility] 03/03/2024 Ambulatory [facility] 03/02/2024 Ambulatory [facility] 02/20/2024 Ambulatory [facility] 01/22/2024 Ambulatory [facility] 01/22/2024 Ambulatory [facility] 01/22/2024 Ambulatory [facility] 01/10/2024 Ambulatory [facility] 01/10/2024 Ambulatory [facility] 01/10/2024
--- OUTSIDE RECORDS SUMMARY | 2025-07-30 15:45 | XMS_ITS | Data Portability ---
Author Organization [facility] Address [address] [place] [address] Care Team Providers Care Bowling Teacher Name Role Phone JEFFREY RODRIGUEZ Primary Care Provider Assessment Encounter Date Assessment Date Assessment LastModified [...] for today's visit. She was admitted to [facility] and a CVA was ruled out as [...] and her daughter satisfaction. She is from [facility] but wish to continue with care in [place]. She is aware we do not have any surgical spine providers that go to [place]. [email or web address] Not available 01/10/2024 16:55:39 01/22/2024 01/22/2024 Patient [...] for today's visit. She was admitted to [facility] and a CVA was ruled out as [...] and her daughter satisfaction. She is from [facility] but wish to continue with care in [place]. She is aware we do not have any surgical spine providers that go to [place]. [email or web address] Not available 01/22/2024 15:01:08 03/02/2024 03/02/2024 58-year-old woman returns for continued management of her neck and left arm pain. Her MRI performed at [facility] on January 13, 2024 revealed moderate to [...] - Left upper extremity EMGs/NCV 2023 024 [facility], [address], [place], [address], 14:12:16 physical therapist referral - Frequency: 2-3 visits per week for 6 weeks Therapy: Evaluate and Treat Modalities: As needed Goal of Therapy: Cervical stabilizati on, myofascial release, strengtheni ng, decreased pain, and progress to home exercise program. Consider traction trial if radicular complaints present. 2023 024 [email or web address] Not available 15:01:00 Procedures None recorded. Surgeries None recorded. Imaging XR, cervical spine, 2 or 3 view 2023 024 [email or web address], [address], [address], [place], [address], 4 08:43:02 MRI, cervical spine, w/o contrast - Neck pain, upper extremity paresthesia s bilaterally , left greater than right, balance issues and advanced degenerativ e changes in the cervical spine. Rule out cord compression or severe foraminal stenosis. Recent admission to [facility] ruled out CVA or intracrania l bleed. 2023 024 [email or web address] Not available 4 16:16:44 Medication Orders prednisone 10 mg tablet 2023 024 [id number], [address] [place], [place], [phone], 13:58:37 Patient TargetsNo targets recorded. Patient Instructions Encounter Date Encounter Id Patient Instructions Last Modified By Organization Details Last Modified Time 01/10/2024 [id number] 2 views of the cervical spine were obtained in the [place] office on 01/10/2024 including AP and lateral. X-rays demonstrated degenerative changes throughout the cervical spine, greatest in the mid cervical region. Straightening. No evidence of spondylolisthesis or compression fracture. Images interpreted by: Tu Aparicio PA-C [email or web address] Not available 01/10/2024 16:54:30 Reason for Referral [...] r spine No observ ation record ed. [email or web address] Not Available 2023 09:13:18 01/13/20 24 XR, cervi monisha spine No observ ation record ed. [email or web address] Not Available 2023 09:17:25 01/13/20 24 XR, cervi monisha spine No observ ation record ed. [email or web address] Not Available 2023 09:18:29 01/13/20 24 MRI, cervi monisha spine , w/o contr ast No observ ation record ed. [email or web address] Not Available 2023 09:21:03 01/15/20 24 01/13/2024 MRI, cervi monisha spine , w/o contr ast No observ ation record ed. [email or web address] [facility] [address] [place] [address], [place], [address], 01/16/2024 11:27:50 Result Notes None recorded. Problems Name Problem SNOMED Code Status Onset Date Resolution Date Notes Provider Name and Address Organization Details Recorded Time Cervical spondylosis 996526176 Active 2023 TU APARICIO PA-C [address], [place], [address], [facility] 4 16:46:20 Impairment of balance 872887650 Active 2023 TU APARICIO PA-C [address], [facility] [place], [address], [facility] 4 16:46:37 Neck pain 82219671 Active 2023 TU APARICIO PA-C [address], [facility] [place], [address], [facility], [facility] 4 14:46:53 Cervical radiculopathy 96812005 Active 2023 Gopal Pinto MD [address], [place], [address], [facility], [facility] 4 13:38:56 Problem Notes None recorded. Medical Equipment None Reported. Allergies Allergen ID Allergen Name Allergen Category Reaction Reaction Severity Criticality Documentation Date Start Date Code Code System Note Provider Name and Address Organization Details Recorded Time 64445 pravastat in medicatio n Not available Not available Not available 01/10/2024 36627 RxNorm Federico Alanis null, [facility] 4 16:12:23 Medications Name Sig Start Date Stop [...] completed Not Available Not Available Not Available atorvastati n 20 mg tablet Take 20 mg by mouth. 2015 active Not Available Not Available Not Avai lable pravastatin 40 mg tablet Take 1 tablet by mouth daily. 2013 active Not Available Not Available Not Avai lable ibuprofen 800 mg tablet Take 800 mg by mouth. 2013 active Not Available Not Available Not Avai lable metoprolol succinate ER 50 mg tablet,exte nded release 24 hr TAKE 1 TABLET BY MOUTH DAILY active Not Available Not Available No t Available meloxicam 15 mg tablet Take 1 tablet (15 mg total) by mouth daily. 2021 active Not Available Not Available Not Avai lable methylpredn isolone 4 mg tablet TAKE 2 TABLETS BY MOUTH TWICE DAILY 01/09 completed Not Available Not Available Not Available sumatriptan 50 mg tablet TAKE 1 TABLET BY MOUTH TWICE DAILY NEEDED FOR MIGRAINE HEADACHE DO NOT EXCEED 4 DOSES PER 24 HOURS active Not Available Not Available No t Available topiramate 25 mg tablet TAKE 1 TABLET BY MOUTH AT BEDTIME 03/02 completed Not Available Not Available Not Available levothyroxi ne 100 mcg tablet TAKE 1 TABLET BY MOUTH DAILY active Not Available Not Available No t Available levothyroxi ne 88 mcg tablet TAKE 1 TABLET BY MOUTH DAILY 01/09 completed Not Available Not Available Not Available levothyroxi ne 50 mcg tablet Take 1 tablet by mouth daily. 2013 active Not Available Not Available Not Avai lable omeprazole 20 mg capsule,del ayed release TAKE [...] Updated DateTime 01/10/2024 157.48 cm 28.7 kg/m2 [address] [facility] 01/10/2024 16:11:45 Date Recorded Body height Body mass index (BMI) Body weight Provider Name and Address Organization Details Last Updated DateTime 01/22/2024 157.48 cm 28.7 kg/m2 [address] [facility] 01/22/2024 14:32:23 Date Recorded Body height Body mass index (BMI) Body weight Provider Name and Address Organization Details Last Updated DateTime 03/02/2024 157.48 cm 28.7 kg/m2 [address] [facility] 03/02/2024 13:16:44 Social History None recorded. Functional Status Question Answer Note LastModified by Organization D etails LastModified Time What is your level of alcohol consumption? None [email or web address] Information not available 01/10/2024 Mental Status None recorded. Family History Nothing Reported. Medical History Condition Response Hypertension Y Hypothyroidism Y Gynecological HistoryNo gynecological history recorded. Obstetrics History GPAL:G 0 P 0 0 0 0 Past Encounters Encounter ID Performer Location Encounter Start Date Encounter Closed Date Diagnosis/Indication Diagnosis SNOMED-CT Code Diagnosis ICD10 Code Diagnosis IMO Codes Diagnosis Note [id number] TU APARICIO PA-C [facility] [address] [place] [address] 9 01/10/2024 15:53:07 01/10/2024 16:31:25 Neck pain 99070931 M54.2 Cervical spondylosis 387 678678 M47.22 Additional diagnosis detail: [place] [id number] TU APARICIO PA-C [place] [address] 01/22/2024 14:20:20 01/22/2024 14:56:23 Cervical spondylosis 635125635 M47.22 Additional diagnosis detail: Cervical spondylosi s with radiculopa thy Neck pain 49514496 M54.2 [id number] Gopal Pinto MD [place] [address] 9 03/02/2024 13:11:54 03/02/2024 13:43:24 Cervical spondylosis 688213466 M47.22 Neck pain 22093313 M54.2 Cervical radiculopathy 72685362 M54.12 Health Concerns Section Related Observation LastModified by Organization Detai ls LastModified Time None Recorded Concern Status LastModified by Organization Details LastModified Time None Recorded Advance Directives Directive None Recorded Payers Insurance Date Sequence Insurance Name Policy Number Policy Knight Covered Member ID Knight Member ID Guarantor Name 04/24/2024 1 [place] [id number] Abner Mari [id number] Ira Kamaljit Notes Date Note Type Note Provider Name and Address Organization Details Recorded Time 01/10/2024 text/html ROS as noted in the HPI Patient is a 58-year-old female who presents [...] both upper extremities. She was admitted to [facility] on Saturday and had a CT and [...] hand. 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 Past medical history significant for hypertension and hypothyroidism TU APARICIO PA-C [address], [place], [address], [place] [facility] 01/10/2024 16:56:57 01/22/2024 text/html ROS as noted in the HPI Patient returns today for follow-up of chronic [...] both upper extremities. She was admitted to [facility] on Saturday and had a CT and [...] hand. 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 Past medical history significant for hypertension and hypothyroidism TU APARICIO PA-C [address], [place], [address], [place] [facility] 01/22/2024 15:03:55 OBGyn Episode No OBEpisode recorded.
--- OUTSIDE RECORDS SUMMARY | 2025-07-30 15:45 | XMS_ITS | Encounter Summary ---
Author Organization [employer] Address [address] [facility] 7t [place] [address] Care Team Providers Care Patternmaker Pressure Cast Name Role Phone Colt Hartley MD Primary Care Provider + [phone] Encounter Details Date Type Department Care Team ([facility] Contact Info) Description 03/20/2024 Orders Only [facility] [address] [place] [address] Provider, Not In System Social History Tobacco [...] Procedure Name Priority Date/Time Associated Diagnosis Comments PAP/HPV Routine 05/14/2022 1:01 PM EDT COLONOSCOPY Routine 11/23/2020 12:59 PM EST documented in this encounter Results * PAP/HPV (05/14/2022 1:01 PM EDT) us Not In System Provider HEALTH MAINTENANCE Final Result * Colonoscopy (11/23/2020 12:59 PM EST) us Not In System Provider HEALTH MAINTENANCE Final Result documented in this encounter Visit Diagnoses Not on filedocumented in this encounter Care Teams Patternmaker Pressure Cast Relationship Specialty Start Date End Date Colt Hartley MD [address] [place] [address] PCP - General Internal Medicine 12/25/23 documented as of this encounter
--- OUTSIDE RECORDS SUMMARY | 2025-07-30 15:45 | XMS_ITS | Encounter Summary ---
Author Organization [employer] Address [address] [facility] 7 [place] [address] Care Team Providers Care Sheep Clipper Name Role Phone Colt Hartley MD Primary Care Provider [phone] Encounter Details Date Type Department Care Team ([facility] Contact Info) Description 10/13/2024 Orders Only [facility] [address] [place] [address] Provider, Not In System Social [...] on filedocumented in this encounter Care Teams Sheep Clipper Relationship Specialty Start Date End Date Colt Hartley MD [address] [place] [address] PCP - General Internal Medicine 12/25/23 documented as of this encounter
--- OUTSIDE RECORDS SUMMARY | 2025-07-30 15:45 | XMS_ITS | Encounter Summary ---
Author Organization [facility] Address [address] [place] [address] Care Team Providers Care Rehabilitation Therapy Technician Name Role Phone Unavailable Primary Care Provider Unavailabl e Encounter Details Date Type Department Care Team (Latest Contact Info) Description 02/01/2021 Lab Requisition [facility] [address] Through [address] [place] [address] [address] [place] [address] Tony Knight MD [address] [place], [place] [id number] Encounter for laboratory testing for COVID-19 virus [...] Detected Not Detected 02/01/2021 7:02 PM EDT [facility] Comment: Negative results do not [...] (FDA) under an Emergency Use Authorization (EUA). Validation was completed and performance characteristics established by [facility] as per the FDA and CLIA requirement for this EUA. The Aptima SARS-CoV-2 assay Letter of Authorization, along with the authorized Fact Sheet for Healthcare Providers, the authorized Fact Sheet for Patients, and authorized labeling are available on the FDA website: https://www.fda.gov/medical-devices/mxqfciqyh-pzdusfnqib-ltgzmef-devices/emergen -us d-azokrsdeagdwsm-lucrfsn-devices. Performed at [facility], [place], [place] License [id number] CLIA [id number] Source Nasopharyngeal 02/01/2021 7:02 PM EDT [facility] Comment:Performed at [facility], [facility], [place] license No. [id number] CLIA No. [id number] Microbiology Nasopharyngeal swab / Unknown 02/01/2021 1:14 PM EDT 02/01/2021 1:14 PM EDT us Tony Knight MD MICROBIOLOGY - GENERAL ORDER FABIOLA Final Result [facility] [address] [place] [address] documented in this encounter Visit Diagnoses Diagnosis Encounter for laboratory testing for COVID-19 virus documented in this encounter
== END 2025-07-30 15:44 | disposition home or self-care (01) ==
LOC: HO.MAMMO 15:43
PROVIDERS: PCP Internal Medicine; Visit Provider Internal Medicine
DX: Z12.31 Encounter for screening mammogram for malignant neoplasm of breast (principal)
CPT/HCPCS: 77063; 77067

== ENCOUNTER → 2025-07-30 16:00 | Outpatient (BNV) | payer BC, SELFPAY | PROVIDERS: PCP Internal Medicine; Visit Provider Internal Medicine | DX: Z12.31 Encounter for screening mammogram for malignant neoplasm of breast (principal) | CPT/HCPCS: 77063; 77067 ==

== ENCOUNTER 2025-08-11 08:00 | Outpatient (RCR) | payer BC, SELFPAY | END 2025-08-11 08:51 | disposition home or self-care (01) | LOC: HO.PTCHIC 08:00 | PROVIDERS: PCP Internal Medicine; Visit Provider Orthopaedic Surgery | DX: M54.59 Other low back pain (principal) | CPT/HCPCS: 97110; 97140; 97161 ==

== ENCOUNTER 2025-08-30 13:43 | Outpatient (REF) | payer BC, SELFPAY ==
--- NOTE | ~2025-08-30 | MM_ITS ---
EXAMINATION(S): MM DIAGNOSTIC DIGITAL BREAST TOMOSYNTHESIS, RIGHT CLINICAL INFORMATION: Callback from screening for right breast asymmetry in the superior breast posterior depth on the MLO view. COMPARISON: Comparison made to multiple prior, most recent July 30, 2025, and most remote June 12, 2017. TECHNIQUE: Digital breast tomosynthesis is performed in full field ML 90 degrees along with computer-aided detection (CAD). Synthesized 2D images are generated from the tomosynthesis. Spot compression tomosynthesis were obtained. FINDINGS: BREAST COMPOSITION: There are scattered areas of fibroglandular density. RIGHT BREAST: Previously suggested asymmetry in the superior breast posterior depth presses out with spot compression. Local parenchyma on today's images is similar to multiple prior studies as far back as 2016 and most likely represented overlapping fibroglandular breast tissue. MM/MM tomosynthesis added views R IMPRESSION: RIGHT BREAST: Negative, no mammographic evidence of malignancy. Normal interval follow-up is recommended in 12 months. ASSESSMENT: BI-RADS: Category 1: Negative RECOMMENDATION: 1 year F/U Results were provided to the patient at time of visit by the technologist. This patient's information was entered into a reminder system with a target due date for their next mammogram. Electronically signed by: Morro Villegas MD 08/30/2025 02:44 PM ALIN HERRMANN
== END 2025-08-30 13:44 | disposition home or self-care (01) ==
LOC: HO.MAMMO 13:43
PROVIDERS: PCP Internal Medicine; Visit Provider Advanced Practice Midwife
DX: N64.89 Other specified disorders of breast (principal)
CPT/HCPCS: 77061; 77065

== ENCOUNTER → 2025-08-30 14:00 | Outpatient (BNV) | payer BC, SELFPAY | PROVIDERS: PCP Internal Medicine; Visit Provider Radiology Body Imaging | DX: R92.8 Other abnormal and inconclusive findings on diagnostic imaging of breast (principal) | CPT/HCPCS: 77061; 77065 ==